=== PATIENT | female | born 1950 | race Caucasian/White ===

== ENCOUNTER → 2019-02-20 12:23 | Outpatient (CLI) | payer MEDICARE, SELFPAY ==
--- NOTE | ~2019-02-20 | XR_ITS ---
EXAMINATION: XR hip RT 2V w AP pelvis DATE: 02/20/2019 12:37 INDICATION: Right hip pain. TECHNIQUE: An anteroposterior view pelvis and 2 views of right hip were obtained. COMPARISON: None. FINDINGS: Bone alignment is normal. No fracture. There is mild lumbar spondylosis. There is mild oste oarthritis of the hips. IMPRESSION: 1. Mild osteoarthritis of the hips. Reviewed, dictated and finalized at location A. LANCE DESIGNER
== END ==
PROVIDERS: PCP Family Medicine; Visit Provider Family Medicine
DX: G89.29 Other chronic pain (principal); M16.0 Bilateral primary osteoarthritis of hip
CPT/HCPCS: 73502; 73521

== ENCOUNTER 2019-03-17 10:29 | Emergency (ER) | payer MEDICARE, SELFPAY ==
--- NOTE | ~2019-03-17 | XR_ITS ---
XR ankle RT min 3V DATE: 03/17/2019 10:49 INDICATION: Injury; fall from stool. Lateral foot and ankle pain. TECHNIQUE: 4 views COMPARISON: None FINDINGS: No fracture or dislocation of the ankle or disruption of the ankle mortise. No periosteal r eaction or bone destruction. Prominent plantar and posterior calcaneal enthesopathy. IMPRESSION: No fracture or dislocation of right ankle Reviewed, dictated and finalized at location A. ITAL SCIENTIST
--- NOTE | ~2019-03-17 | XR_ITS ---
XR foot RT min 3V DATE: 03/17/2019 10:48 INDICATION: Fall from stool. Lateral ankle and foot pain. TECHNIQUE: 4 views COMPARISON: None FINDINGS: Prominent plantar and posterior calcaneal enthesopathy. Mild hallux valgus and bunion deformity. There is osteoarthritis at the first tarsometatarsal and fir st metatarsophalangeal joint. No fracture, dislocation, periosteal reaction or bone destruction is detected. IMPRESSION: No fracture or dislocation Plantar and posterior calcaneal enthesopathy Mild hallux valgus and bunion deformity Osteoarthritis at first metatarsophalangeal and first tarsometatarsal joints Reviewed, dictated and finalized at location A. N TILER
--- NOTE | 2019-03-17 10:35 | ED.LOWEXIN ---
HPI - Extremity Injury (Lower) General Chief Complaint: Extremity Injury, Lower Stated Complaint: right foot pain/injury Time Seen by Provider: 03/17/19 10:35 Source: patient and RN notes reviewed History of Present Illness HPI Narrative: Patient is a 68-year-old female presents the urgent care with complaints of a right foot injury after missing a step while walking down a stepladder. Patient states that occurred last night. Patient states initially she had no pain and continue to ambulate without any difficulty.. Patient states that she has had no swelling or bruising but is having difficulty with weightbearing activity. Patient has taken ibuprofen. No other acute complaints. No acute distress noted. Patient had a plan of care. Related Data Home Medications Medication Instructions Recorded Confirmed atorvastatin 10 mg tablet 10 mg PO DAILY 01/02/19 02/20/19 brimonidine 0.2 %-timolol 0.5 % 1 drop EACH EYE Q12H 01/02/19 02/20/19 eye drops levothyroxine 75 mcg tablet 75 mcg PO DAILY 01/02/19 02/20/19 metformin 500 mg tablet,extended 1,000 mg PO BID tablet 01/02/19 02/20/19 release 24 hr spironolactone 150 mg PO DAILY 03/17/19 03/17/19 Allergies Allergy/AdvReac Type Severity Reaction Status Date / Time No Known Allergies Allergy Verified 03/17/19 10:35 Review of Systems Review of Systems: Narrative: CONSTITUTIONAL: Denies fever, chills, or sweats. EYES: Denies visual changes, redness, or discharge. ENT: Denies rhinorrhea, congestion, sore throat, or otalgia. CARDIOVASCULAR: Denies chest pain, palpitations, or edema. RESPIRATORY: Denies cough or dyspnea. GASTROINTESTINAL: Denies abdominal pain, nausea, vomiting, or diarrhea. GENITOURINARY: Denies dysuria or hematuria. SKIN: Denies rash or itching. MUSCULOSKELETAL: Reports of right foot pain when bearing weight due to injury/fall NEUROLOGIC: Denies headache, numbness, or weakness. All other systems reviewed are negative, except as documented in HPI. [facility] Past Medical History Medical History (Updated 03/17/19 @ 11:11 by JASSON Brown) Chronic anxiety Chronic right hip pain Hirsutism Malabsorption Family History Family History (Updated 07/10/18 @ 11:32 by DOCTOR UNKNOWN) Mother Hypertension Acute myocardial infarction, Onset Age: 71 Grandparent Family history of malignant neoplasm, Onset Age: 38 Father Family history of lung cancer, Onset Age: 60 Social History Social History Smoking status: Never smoker Alcohol intake: never Comments At the time of my signature, I reviewed and agree with the nursing past medical, surgical, social, and family history. There is no relevant family history pertinent to the patient complaint. Exam Narrative: Exam Narrative: GENERAL: This is a well-nourished, well-developed patient, in no apparent distress. HEAD: normocephalic, atraumatic. EYES: PERRL. Sclera clear/white. Vision is grossly intact. EARS: External ears normal NOSE: External nose normal with no obvious nasal discharge THROAT: Mucous membranes moist NECK: Neck supple CARDIOVASCULAR: Regular rate and rhythm without murmurs, gallops, or rubs. RESPIRATORY: Clear to auscultation. Breath sounds equal bilaterally. SKIN: warm, intact with no suspicious lesions or rash, good texture and turgor. NEURO: awake, alert, and oriented to person, place and time. There were no obvious focal neurologic abnormalities. EXTREMITIES: No obvious fracture dislocation to the right foot/ankle. No edema, ecchymosis, erythema to the right lower extremity. Positive strong right pedal pulse with capillary refill less than 2 seconds. Range of motion within normal limits with moderate pain. Moderate tenderness to the lateral aspect of the right foot and malleolus. Difficulty with weightbearing due to pain. Course Vital Signs Vital signs: Vital Signs Temperature 97.2 F L 03/17/19 10:39 Pulse Rate 90 03/17/19
[2019-03-17 10:39] VITALS: BP 103/81; PULSE 90; RESP 16; TEMP 36.2; O2SAT 100
== END 2019-03-17 11:26 | disposition home or self-care (01) ==
PROVIDERS: Emergency Provider Nurse Practitioner Family; PCP Family Medicine
DX: S93.601A Unspecified sprain of right foot, initial encounter (principal); W11.XXXA Fall on and from ladder, initial encounter
CPT/HCPCS: 73610; 73630; 99213; G0463

== ENCOUNTER 2020-09-09 18:16 | Observation (INO) | payer MEDICARE, SELFPAY ==
[2020-09-09] VITALS (12 sets, daily range): BP systolic 121–138; BP diastolic 64–81; PULSE 80–104; RESP 11–20; TEMP 36.4–36.6; O2SAT 97–100; BMI 23.4
--- NOTE | ~2020-09-09 | XR_ITS ---
EXAMINATION: XR chest 2V DATE: 09/09/2020 18:55 INDICATION: Left chest pain. TECHNIQUE: Frontal and lateral views of the chest were obtained. COMPARISON: None. FINDINGS: There is mild scarring at the lung apices. No pleural effusion or pneumothorax. The heart s ize is normal. Surgical clips in the right upper quadrant are likely from cholecystectomy. IMPRESSION: 1. Mild scarring at the lung apices. Reviewed, dictated and finalized at location A.
--- NOTE | ~2020-09-09 | US_ITS ---
EXAMINATION: US venous doppler [facility] DATE: 09/10/2020 12:07 INDICATION: Left lower limb pain TECHNIQUE: Almanzar scale images without and with compression and Doppler images of the left lower extrem ity veins were obtained. COMPARISON: None FINDINGS: The left common femoral vein, profunda femoral vein, femoral vein, popliteal vein, peroneal trunk, posterior tibial veins, and greater saphenous vein are patent. IMPRESSION: 1. Patent left lower extremity veins. No evidence of deep venous thrombosis. Reviewed, dictated and finalized at location A.
--- NOTE | ~2020-09-09 | NM_ITS ---
EXAMINATION: NM emile stress w perfusion DATE: 09/10/2020 12:49 INDICATION: Chest pain TECHNIQUE: Rest images were obtained following intravenous administration of 10.2 mCi Tc99m tetrofosm in (Myoview). The patient was infused intravenously with Lexiscan (Regadenoson). Then, 30.8 mCi Tc99m tetrofosmin (Myoview) was administered intravenously, and stress images were obtained. Data was jagruti nstructed into short axis and horizontal and vertical long axis SPECT images. Gated SPECT images were also obtained. COMPARISON: None. FINDINGS: There is no definite reversible or fixed perfusion abnormality to suggest ischemia or infar ction. There is normal left ventricular chamber size, wall motion and ejection fraction. Left ventr icular ejection fraction measures >70%. IMPRESSION: 1. Normal myocardial perfusion at rest and during stress. 2. Left ventricular ejection fraction measuring >70%. Reviewed, dictated and finalized at location A.
--- NOTE | 2020-09-09 18:24 | ECG_ITS ---
Measurements Intervals [place] Rate: 97 P: 68 MO: 158 QRS: 25 QRSD: 80 T: 63 QT: 320 QTc: 408 Interpretive Statements SINUS RHYTHM BASELINE ARTIFACT- II, III, AVL, V4-V6 NORMAL ECG Electronically Signed On 09-10-2020 11:51:55 CDT by Gabe Michaud D.O.
[2020-09-09 18:40] LABS: Basophils Absolute Auto 0.1 K/mm3 (0.0-0.1); Basophils Percent Auto 0.5 % (0.2-1.2); Eosinophils Absolute Auto 0.2 K/mm3 (0-0.3); Eosinophils Percent Auto 1.8 % (0-4.4); Hemoglobin 12.2 g/dL (12.0-15.0); Immature Granulocyte Absolute 0.04 K/mm3 (0.00-0.031); Immature Granulocyte Percent A 0.4 % (0-0.5); Lymphocytes Absolute Auto 2.27 K/mm3 (0.9-3.2); Lymphocytes Percent Auto 22.5 % (18.3-44.2); Mean Corpuscular HGB Conc 30.5 g/dl (32-36); Mean Corpuscular Hemoglobin 24.8 pg (26-34); Mean Corpuscular Volume 81.5 fl (80-100); Mean Platelet Volume 9.5 fl (7.4-10.4); Monocytes Absolute Auto 0.6 K/mm3 (0.1-0.6); Monocytes Percent Auto 6.2 % (2.6-8.5); Neutrophils Absolute Auto 6.9 K/mm3 (1.3-6.7); Neutrophils Percent Auto 68.6 % (45.5-73.1); Platelet Count Result 370 k/mm3 (150-375); Red Blood Count 4.91 M/mm3 (4.2-5.4); Red Cell Distribution Width 13.9 % (11.5-14.5); White Blood Count 10.1 K/mm3 (4.5-10.0)
[2020-09-09 18:52] LABS: Anion Gap 11 mmol/L (8-16); Blood Urea Nitrogen 19 mg/dL (7-17); Calcium 9.9 mg/dL (8.4-10.2); Carbon Dioxide 24 mmol/L (22-30); Chloride 98 mmol/L (98-107); Estimated CRCL calculation 51 ml/min; Estimated Glomerular Filt Rate > 60; Glucose 147 mg/dL (65-110); Potassium 4.1 mmol/L (3.4-5.0); Sodium 133 mmol/L (137-145)
[2020-09-09 19:04] LABS: Troponin I < 0.012 ng/mL (0.000-0.034)
[2020-09-09 19:10] LABS: INR 0.8; Prothrombin Time 11.5 Seconds (11.1-14.7)
[2020-09-09 19:11] LABS: Partial Thromboplastin Time 21.8 SECONDS (22.3-36.8)
--- NOTE | 2020-09-09 21:51 | ED.CHESTPAIN ---
HPI - Chest Pain General Chief Complaint: Chest Pain Stated Complaint: chest pain Time Seen by Provider: 09/09/20 20:20 Source: patient Mode of arrival: ambulatory Limitations: no limitations History of Present Illness HPI narrative: 70-year-old with a history of hyperlipidemia hypertension borderline diabetic on Metformin here with complaints of left-sided chest pain radiating into her left arm for past few days. Patient states that pain lasted for few hours on the very first day however since this morning she has been getting on and off pain. Patient states that while she was climbing her basement stairs she had severe pain in the left side of her chest radiated to her left arm. She denied any shortness of breath, nausea or diaphoresis with the pain. Patient states that whenever she gets this pain radiating to her left arm and it is like electrical shock going down to her arm. She states that she took 3 aspirins prior to coming to the ER. MD complaint: chest pain Onset (ago): day(s) (3) Timing of current episode: episodic Onset: during exertion Pain location: left chest Pain radiation: left arm Severity: moderate Quality: aching, heaviness and sharp Relieving factors: nothing Exacerbating factors: exertion Context: recent illness Associated symptoms: nausea Treatment prior to arrival: none Risk Factors Coronary artery disease risk factors: diabetes, hyperlipidemia and hypertension Thoracic aortic dissection risk factors: none Related Data Home Medications Medication Instructions Recorded Confirmed brimonidine 0.2 %-timolol 0.5 % 1 drop EACH EYE Q12H 01/02/19 08/31/20 eye drops cyanocobalamin (vitamin B-12) 1,000 mcg PO DAILY tablet 04/13/20 08/31/20 2,500 mcg tablet cholecalciferol (vitamin D3) 50 2,000 unit PO DAILY cap 08/31/20 08/31/20 mcg (2,000 unit) capsule Allergies Allergy/AdvReac Type Severity Reaction Status Date / Time No Known Allergies Allergy Verified 09/09/20 20:52 Review of Systems Review of Systems: All systems reviewed & are unremarkable except as noted in HPI and below Constitutional: Constitutional: Reports no additional constitutional complaints Eyes: Eyes: Reports no additional eye complaints ENT: Reports system reviewed and no additional complaints, except as documented Cardiovascular: Cardiovascular: Reports as per HPI Respiratory: Respiratory: Reports no additional respiratory complaints Gastrointestinal: Gastrointestinal: Reports no additional gastrointestinal complaints Musculoskeletal: Musculoskeletal: Reports no additional musculoskeletal complaints Integumentary/Breasts: Skin/Breast: Reports system reviewed and no additional complaints, except as docu Neurologic: Reports system reviewed and no additional complaints, except as documented PMFSH Past Medical History Medical History Atypical chest pain BMI 23.0-23.9, adult Chronic anxiety Chronic right hip pain Hirsutism History of basal cell carcinoma the patient has been treated by ceiling cleaner for basal cell carcinoma left upper arm, chest, and on the back Malabsorption Nausea and vomiting Plantar fasciitis of right foot 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 HEAD: Normocephalic, atraumatic. EYES: PERRLA and EOMI.. NECK: Supple. CHEST: Clear to auscultation. No respiratory distres
[2020-09-09 22:14] LABS: Troponin I < 0.012 ng/mL (0.000-0.034)
--- NOTE | 2020-09-09 23:31 | ADMGEN ---
This patient, Lacey Nails, was admitted to IMU Room 201-01. Patient/family oriented to hospital policies and general routines including ID bracelet, bed and alarms, visiting hours, pain management, procedures, bathroom and other care routines, personal items, smoking policy, room service/diet, and visiting hours. Information on how to activate the Rapid Response Team has been discussed. Patient/Family are encouraged to report perceived risks to care and to ask questions if they do not understand what they are told or what they should do.
[2020-09-10] VITALS (10 sets, daily range): BP systolic 106–114; BP diastolic 48–62; PULSE 70–86; RESP 12–18; TEMP 36.2–36.7; O2SAT 97–100
--- NOTE | 2020-09-10 | EST_ITS ---
Patient Info Name: Lacey Nails Age: 70 years : 1950 Gender: Female Ht: 65 in Wt: 140 lbs BSA: 1.71 m2 Exam Date: 09/10/2020 10:51 AM Exam Location: [facility] Stress Patient Status: Inpatient Admit Date: 09/09/2020 Staff Ordering Physician: Modesto Antonio MD Attending Provider: Carlene Sanders PA-C Exercise Technologist: Melissa Peck RDCS Exercise Physician: Gabe Michaud DO Exam Type: CA stress emile w NM Study Info Indications R07.9 - Chest pain, unspecified A regadenoson stress test was performed. Summary 1. 1. Negative lexiscan stress test for ischemic ST changes by ECG criteria. 2. 2. Stable hemodynamics throughout the test. 3. 3. Nuclear scan to follow and will be reported separately. Please correlate with it. 4. 4. Patient informed of the above results. Protocol: Lexiscan Stress ECG Details Stage: REST Duration (min): 5 min : 40 sec HR (bpm): 75 SBP (mmHg): 131 DBP (mmHg): 57 Stage: REST Duration (min): 20 min : 24 sec HR (bpm): 86 SBP (mmHg): 131 DBP (mmHg): 57 Stage: STAGE 1 Duration (min): 0 min : 59 sec HR (bpm): 110 SBP (mmHg): 155 DBP (mmHg): 92 Stage: RECOVERY Duration (min): 1 min : 0 sec HR (bpm): 115 SBP (mmHg): 139 DBP (mmHg): 82 Stage: RECOVERY Duration (min): 2 min : 0 sec HR (bpm): 109 SBP (mmHg): 139 DBP (mmHg): 82 Stage: RECOVERY Duration (min): 3 min : 0 sec HR (bpm): 104 SBP (mmHg): 139 DBP (mmHg): 82 Stage: RECOVERY Duration (min): 4 min : 0 sec HR (bpm): 109 SBP (mmHg): 135 DBP (mmHg): 64 Stage: RECOVERY Duration (min): 5 min : 0 sec HR (bpm): 104 SBP (mmHg): 133 DBP (mmHg): 65 Stage: RECOVERY Duration (min): 5 min : 15 sec HR (bpm): 105 SBP (mmHg): 133 DBP (mmHg): 65 Rest HR: 86 bpm Peak HR: 118 bpm Rest Sys BP: 131 mmHg Peak Sys BP: 155 mmHg Max Pred HR: 149 bpm % Max Pred HR: 79 % Target HR: 127 bpm Max RPP: 18,290 bpm*mmHg Termination Reason: Completed protocol Cardiac Symptoms: Stomach indigestion Total Time: 1 min : 0 sec Rest Castañeda BP: 57 mmHg Peak Castañeda BP: 92 mmHg Total Dose: 0.4 mg Resting ECG Sinus rhythm. Stress ECG No ST changes. Arrhythmias None. Report Signatures
[2020-09-10] MEDS: NITROGLYCERIN OINTMENT 1 INCH DOSE TRANSDERM (00:05)
[2020-09-10] MEDS: ACETAMINOPHEN 325 MG TABLET 650 MG PO (00:06)
[2020-09-10 01:29] LABS: Troponin I < 0.012 ng/mL (0.000-0.034)
--- NOTE | 2020-09-10 02:20 | PM.IMHP ---
H&P: HPI History of Present Illness Date/Time: 09/10/20 02:20 Chief Complaint: CHEST PAIN Narrative: this is a 70-year-old female with past medical history significant for dyslipidemia, hypothyroidism: Type 2 diabetes mellitus: Hypertension. patient presented to the emergency room due to chest pain in the precordial area with radiation to the left shoulder left arm tingling unknown in sensation at the fingers patient had a 1st episode while at [facility]odoxy on Monday and she took a baby aspirin on the day she presented to the emergency room she woke up in the morning with the pain and was doing her daily activities through the day and took 3 baby aspirins but pain did not go away and stay for most of the day she has some shortness of breath when going up stairs and had some lightheadedness no diaphoresis no nausea no vomiting no changes in vision no chills no fevers no rigors no PND or orthopnea no leg swelling no claudication on she has been in her usual state of health up until these happen. preliminary workup was essentially nonrevealing. Review of Systems Review of Systems: chest pain Constitutional: Constitutional: Denies chills, Denies fatigue and Denies fever(s) Eyes: Eyes: Denies change in vision ENT: Denies dysphagia, Denies nasal congestion, Denies nasal discharge, Denies nasal obstruction and Denies odynophagia Cardiovascular: Cardiovascular: Reports chest pain, Denies irregular heart rhythm, Reports lightheadedness, Reports radiating jaw, neck or arm pain and Denies palpitations Respiratory: Respiratory: Denies cough Gastrointestinal: Gastrointestinal: Denies abdominal pain, Denies diarrhea, Denies nausea and Denies vomiting Genitourinary: Genitourinary: Reports no additional female genitourinary complaints Musculoskeletal: Musculoskeletal: Reports no additional musculoskeletal complaints Integumentary/Breasts: Skin/Breast: Reports system reviewed and no additional complaints, except as docu Neurologic: Reports system reviewed and no additional complaints, except as documented Psychiatric: Psychiatric: Reports no additional psychiatric complaints Endocrine: Endocrine: Reports no additional endocrine complaints Hematologic/Lymphatic: Hematologic/Lymphatic: Reports no additional hematologic/lymphatic complaints Allergic/Immunologic: Allergic/Immunologic: Reports no additional allergic/immunologic complaints PMFSH Past Medical History Medical History Atypical chest pain BMI 23.0-23.9, adult Chronic anxiety Chronic right hip pain Hirsutism History of basal cell carcinoma the patient has been treated by integrated circuit ic layout designer for basal cell carcinoma left upper arm, chest, and on the back Malabsorption Nausea and vomiting Plantar fasciitis of right foot 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 Vitamin D deficiency, unspecified Family History Family History (Updated 09/09/20 @ 23:51 by Carmelita Bermeo RN) Mother Acute myocardial infarction, Onset Age: 71 Hypertension Grandparent Family history of malignant neoplasm, Onset Age: 38 Father Family history of lung cancer, Onset Age: 60 Son Endocrine cancer Social History Social History Smoking status: Never smoker Second hand tobacco smoke exposure: Yes (father smoked) Alcohol intake: former Spiritual care concerns: Yes (Hinduism) Meds Home Medications and Allergies Home Medications Medication Instructions Recorded Confirmed Type brimonidine 0.2 %-timolol 0.5 % 1 drop RIGHT EYE Q12H 01/02/19 09/09/20 History eye drops spironolactone 50 mg tablet 150 mg PO DAILY #90 tablet 07/08/19 09/09/20 Rx cyanocobalamin (vitamin B-12) 1,000 mcg PO DAILY tablet 04/13/20 09/09/20 History 2,500 mcg tablet atorvastatin 10 mg tablet 10 mg PO DAILY #90 tablet 06/29/20 09/09/20 Rx metformin 500 mg tablet,
[2020-09-10] MEDS: LEVOTHYROXINE SODIUM 75 MCG TABLET PO (05:27)
[2020-09-10 08:54] LABS: Glucose Point of Care 163 mg/dl (65-105)
[2020-09-10 12:17] LABS: Cholesterol 184 mg/dL (0-200); HDL Direct 37 mg/dL; Triglycerides 265 mg/dL (<150)
[2020-09-10 12:27] LABS: LDL Cholesterol Direct 98 mg/dL
[2020-09-10] MEDS: BRIMONIDINE TARTRATE 0.2% OP SOLN 5 ML BTL 1 DROP RIGHT EYE (13:06)
[2020-09-10] MEDS: TIMOLOL MALEATE 0.5% OP SOLN 5 ML BOTTLE 1 DROP RIGHT EYE (13:06)
[2020-09-10 13:09] LABS: Glucose Point of Care 229 mg/dl (65-105)
[2020-09-10 14:02] LABS: D Dimer < 0.22 ug/mL (<0.48)
[2020-09-10 16:10] LABS: Glucose Point of Care 280 mg/dl (65-105)
--- NOTE | 2020-09-10 16:21 | PM.DS ---
DS: Admitting Diagnosis Admitting Diagnosis chest and arm pain DS: Discharge Diagnosis Discharge Diagnosis (1) Chest pain: Qualifiers: Chest pain type: chest pain due to myocardial ischemia Ischemic chest pain type: unstable angina pectoris Qualified Code(s): I20.0 - Unstable angina Code(s): R07.9 - Chest pain, unspecified Status: Acute (2) Fibromyalgia: Code(s): M79.7 - Fibromyalgia Status: Acute (3) Hypothyroidism, unspecified: Code(s): E03.9 - Hypothyroidism, unspecified Status: Acute (4) Irritable bowel syndrome with diarrhea: Code(s): K58.0 - Irritable bowel syndrome with diarrhea Status: Acute (5) Type 2 diabetes mellitus without complication, without long-term current use of insulin: Code(s): E11.9 - Type 2 diabetes mellitus without complications Status: Acute DS: Summary Hospital Course Hospital Course: Date of service 09/10/20 Patient is a 70-year-old female with a past medical history of type 2 diabetes, hypertension, dyslipidemia, hypothyroidism, and fibromyalgia who presented emergency room for left chest and arm pain. The patient states that she noticed it started on Monday and could not associate the pain with any activity or find any correlation for the timing. She said that she would randomly get is squeezing left-sided chest pain and then her arm would feel tingly. This would last for a few minutes and resolved on its own. Nothing made it better and nothing made it worse. She had no shortness of breath or diaphoresis with these symptoms. No history of heart disease. She is usually pretty active and likes to ride her bike and walks daily. She has stopped exercising last few weeks due to the heat but when she was exercising, she had no symptoms. She has diabetes that has been a little more uncontrolled lately and she is trying to work on her diet. She is not interested in trying new medications but after our discussion is going to think about it. In the ER her troponins were negative x3 and vitals were stable. D-dimer was negative. chest x-ray showed mild scarring at the lung apices but no cardiopulmonary disease. EKG showed no ST change. she had an outpatient stress test ordered for outpatient but since she was having chest pain she was admitted under observation status and underwent a stress test here at the hospital. She passes stress test without any issue whatsoever. She had no signs of CHF. I had a long discussion with patient about etiology of her pain which may include cervical spine radiculopathy, PE, fibromyalgia, cardiac disease not demonstrated on stress test ( small% false negativity), cardiac arrhythmia (less likely), aortic abnormality (bp okay, no anemia),or anxiety. Cardiac disease seems less likely as her stress test is normal and the symptoms are random and not associated with exertion. She is very active and usually walks and rides her bike. I also talked to her about possibility of PE being much less likely since she has a negative D-dimer and no blood clot in her left leg which has been hurting her. she has severe claustrophobia and could not do an MRI here but may consider doing an open MRI outpatient of her cervical spine. I do not think she has had a stroke or TIA since she has no neurological deficits, no evidence of AFib, and does not present like a stroke. She is agreeable to discharge and follow-up with her primary care physician next week. I called Dr. Montemayor and spoke with him about the case and he agreed with following up with her. may consider outpatient cervical spine MRI and echo. We discussed that she may follow-up with a business functional analyst anyway if the pain persists to ensure no pathology since she does have diabetes. She was educated about the worrisome signs and symptoms come back to emergency room for and was discharged stable condition. Time Spent with Patient Time attestation: Total time spent providing an
== END 2020-09-10 17:48 | disposition home or self-care (01) ==
LOC: ANHED 22:37 → ANHTRC 23:11 → ANHIMU 23:19
PROVIDERS: Physician Assistant; Admitting Provider Internal Medicine; Emergency Provider Family Medicine; PCP Family Medicine; Visit Provider Student in an Organized Health Care Education/Training Program
DX: R07.9 Chest pain, unspecified (principal); I20.0 Unstable angina; E03.9 Hypothyroidism, unspecified; E11.9 Type 2 diabetes mellitus without complications; E78.5 Hyperlipidemia, unspecified; I10 Essential (primary) hypertension; K58.0 Irritable bowel syndrome with diarrhea; M79.7 Fibromyalgia; Z85.828 Personal history of other malignant neoplasm of skin; Z79.84 Long term (current) use of oral hypoglycemic drugs
CPT/HCPCS: 36415; 71046; 78452; 80048; 80061; 82948; 84443; 84484; 85025; 85380; 85610; 85730; 93005; 93017; 93971; 99285; A9270; A9502; G0378; J2785

== ENCOUNTER → 2020-09-16 14:37 | Outpatient (CLI) | payer MEDICARE, SELFPAY ==
--- NOTE | ~2020-09-16 | XR_ITS ---
XR_CERV2-3V_CR DATE: 09/16/2020 15:05 INDICATION: Neck pain TECHNIQUE: AP, open-mouth, lateral, swimmer views COMPARISON: None FINDINGS: C1 and C2 are normally aligned and the odontoid process is intact. No fracture or dislocation or locked facet or prevertebral soft tissue swelling. There is moderate loss of interspace height and spurring at C4-5 and severe degenerative disc disease at C5-6. There is moderately severe degenerative disc disease at C6-7. There is uncovertebral joint spurring in the mid and lower cervical spine and degenerative changes at the apophyseal joints of the cervical spine. IMPRESSION: Cervical spondylosis Reviewed, dictated and finalized at Location A. Reviewed, dictated and finalized at location A. IMPRESSION: Cervical spondylosis
--- NOTE | ~2020-09-16 | XR_ITS ---
XR shoulder LT min 2V DATE: 09/16/2020 15:05 INDICATION: Left shoulder pain TECHNIQUE: 4 views COMPARISON: None FINDINGS: There is idiopathic skeletal hyperostosis of the thoracic spine. Diffuse osteopenia. No fracture or dislocation, periosteal reaction or bone destruction or abnormal soft tissue calcifica tion of the left shoulder. IMPRESSION: Osteopenia Diffuse idiopathic skeletal hyperostosis of the thoracic spine Reviewed, dictated and finalized at location A.
== END ==
PROVIDERS: PCP Family Medicine; Visit Provider Nurse Practitioner Family
DX: M48.14 Ankylosing hyperostosis [Forestier], thoracic region (principal); M47.892 Other spondylosis, cervical region
CPT/HCPCS: 72040; 73030

== ENCOUNTER 2020-12-23 00:02 | Day surgery (SDC) | payer MEDICARE, SELFPAY ==
[2020-12-10 12:57] VITALS: BMI 23.8
--- NOTE | 2020-12-22 16:13 | P.HP_ITS ---
History of Present Illness History of Present Illness Consent: Risks, benefits, and alternatives have been discussed and questions answered. Patient agrees to proceed with procedure. Chief complaint: hx of colon polyps Z86.010 Narrative: Lacey Nails is a 70 year old female referred for colon cancer screening. 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 Screening for diabetic retinopathy no diabetic retinopathy noted 11/18/2020 Vitamin D deficiency, unspecified Surgical History Surgical History H/O colonoscopy Family History Family History Mother Acute myocardial infarction, Onset Age: 71 Hypertension Grandparent Family history of malignant neoplasm, Onset Age: 38 Father Family history of lung cancer, Onset Age: 60 Son Endocrine cancer Social History Social History Smoking status: Never smoker Second hand tobacco smoke exposure: Yes (father smoked) Alcohol intake: never Substance use: never Substance use type: does not use Living arrangements: with family Spiritual care concerns: No Meds Home Medications and Allergies Home Medications Medication Instructions Recorded Confirmed Type brimonidine 0.2 %-timolol 0.5 % 1 drop RIGHT EYE Q12H 01/02/19 12/10/20 History eye drops spironolactone 50 mg tablet 150 mg PO DAILY #90 tablet 07/08/19 12/10/20 Rx atorvastatin 10 mg tablet 10 mg PO DAILY #90 tablet 06/29/20 12/10/20 Rx metformin 500 mg tablet,extended 1,000 mg PO BID #120 tablet 08/18/20 12/10/20 Rx release 24 hr cholecalciferol (vitamin D3) 50 2,000 unit PO DAILY cap 08/31/20 12/10/20 History mcg (2,000 unit) capsule levothyroxine 75 mcg tablet 75 mcg PO DAILY #30 tablet 09/01/20 12/10/20 Rx Allergies Allergy/AdvReac Type Severity Reaction Status Date / Time No Known Allergies Allergy Verified 12/23/20 06:21 Exam Resp: Auscultation: clear to auscultation bilaterally Cardio: Rate: regular rate Rhythm: regular rhythm GI: GI Palp: Yes Soft to palpation and No Tenderness to palpation present (GI) Assessment and Plan Assessment and plan (1) Colon cancer screening: Code(s): Z12.11 - Encounter for screening for malignant neoplasm of colon Status: Acute Assessment and Plan: Colonoscopy with possible biopsy or polypectomy or cautery or injection of substances.
[2020-12-23 06:23] VITALS: BP 134/62; PULSE 88; RESP 18; TEMP 36.1; O2SAT 100
[2020-12-23] MEDS: LACTATED RINGERS 1,000 ML 150 ML IV CONT ×2 (06:30→06:37)
[2020-12-23 06:40] LABS: Glucose Point of Care 177 mg/dl (65-105)
--- NOTE | 2020-12-23 06:49 | WPDANESEPPF ---
Anes - Initial Pre Proc Eval Procedure: Operation Date: 12/23/20 07:30 Proposed Procedures p Screening Colonoscopy - Chris Higgins MD Date/Time: 12/23/20 06:49 Surgeon: Chris Higgins MD Pre Op Diagnosis: hx of colon polyps Z86.010 Patient Data Age: 70 Gender: F Height: 1.65 m Weight: 62 kg Last Vital Signs Temp 36.1 C L 12/23/20 06:23 Pulse 88 12/23/20 06:23 Resp 18 12/23/20 06:23 BP 134/62 12/23/20 06:23 Pulse Ox 100 12/23/20 06:23 Allergies Allergy/AdvReac Type Severity Reaction Status Date / Time No Known Allergies Allergy Verified 12/23/20 06:21 Home Medications Medication Instructions Recorded Confirmed Type brimonidine 0.2 %-timolol 0.5 % 1 drop RIGHT EYE Q12H 01/02/19 12/10/20 History eye drops spironolactone 50 mg tablet 150 mg PO DAILY #90 tablet 07/08/19 12/10/20 Rx atorvastatin 10 mg tablet 10 mg PO DAILY #90 tablet 06/29/20 12/10/20 Rx metformin 500 mg tablet,extended 1,000 mg PO BID #120 tablet 08/18/20 12/10/20 Rx release 24 hr cholecalciferol (vitamin D3) 50 2,000 unit PO DAILY cap 08/31/20 12/10/20 History mcg (2,000 unit) capsule levothyroxine 75 mcg tablet 75 mcg PO DAILY #30 tablet 09/01/20 12/10/20 Rx Laboratory Tests 12/23/20 06:33 POC Capillary Glucose 177 mg/dl H mg/dl (65-105) Patient hx anesthesia problems: none Family hx anesthesia problems: none Results Review: All pre-operative results and documents have been reviewed as part of the pre-operative evaluation. 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 Screening for diabetic retinopathy no diabetic retinopathy noted 11/18/2020 Vitamin D deficiency, unspecified Surgical History Surgical History (Updated 12/23/20 @ 06:50 by Ezequiel Farr MD) H/O colonoscopy Family History Family History Mother Acute myocardial infarction, Onset Age: 71 Hypertension Grandparent Family history of malignant neoplasm, Onset Age: 38 Father Family history of lung cancer, Onset Age: 60 Son Endocrine cancer Social History Social History Smoking status: Never smoker Second hand tobacco smoke exposure: Yes (father smoked) Alcohol intake: never Substance use: never Substance use type: does not use Living arrangements: with family Spiritual care concerns: No Anes - Eval Final PreProcedure Day of Procedure 12/23/20 06:49 Patient weight: normal Heart: regular rate and rhythm Lungs: clear to auscultation Airway: Mallampati scale class II Neurological: alert and oriented Last oral intake: >/= 8 hours ASA classification: III Emergent: no Anesthetic plan: proceed Anesthesia type and monitoring: general GIVS and standard monitoring Results Review: All pre-operative results and documents have been reviewed as part of the pre-operative evaluation. Informed Consent: The patient's anesthetic plan and its attendant risks and benefits were discussed with the patient/family/POA. Questions were solicited and answers provided to the satisfaction of the patient/family/POA.
[2020-12-23 07:52] VITALS: BP 102/60; PULSE 73; RESP 17; O2SAT 98
[2020-12-23 08:02] VITALS: BP 110/71; PULSE 77; RESP 21; O2SAT 100
[2020-12-23 08:12] VITALS: BP 126/60; PULSE 71; RESP 20; O2SAT 100
== END 2020-12-23 08:21 | disposition home or self-care (01) ==
PROVIDERS: PCP Family Medicine; Visit Provider Internal Medicine Gastroenterology
PROC: 0DJD8ZZ Inspection of Lower Intestinal Tract, Via Natural or Artificial Opening Endoscopic (ICD-10-PCS; CPT 45378; principal; 2020-12-23 07:30)
DX: Z12.11 Encounter for screening for malignant neoplasm of colon (principal); K63.5 Polyp of colon; D12.3 Benign neoplasm of transverse colon; E03.9 Hypothyroidism, unspecified; Z79.84 Long term (current) use of oral hypoglycemic drugs; F41.9 Anxiety disorder, unspecified; L68.0 Hirsutism; M72.2 Plantar fascial fibromatosis; E11.9 Type 2 diabetes mellitus without complications; Z85.828 Personal history of other malignant neoplasm of skin
CPT/HCPCS: 45385; 45380; 82948; 88305; J2704; J7120

== ENCOUNTER 2021-08-17 11:09 | Outpatient (CLI) | payer MEDICARE, SELFPAY ==
[2021-08-17 11:29] LABS: Basophils Absolute Auto 0.1 K/mm3 (0.0-0.1); Basophils Percent Auto 0.7 % (0.2-1.2); Eosinophils Absolute Auto 0.2 K/mm3 (0-0.3); Eosinophils Percent Auto 2.4 % (0-4.4); Hematocrit 34.7 % (37.0-47.0); Hemoglobin 9.7 g/dL (12.0-15.0); Immature Granulocyte Absolute 0.02 K/mm3 (0.00-0.031); Immature Granulocyte Percent A 0.3 % (0-0.5); Lymphocytes Absolute Auto 1.72 K/mm3 (0.9-3.2); Lymphocytes Percent Auto 23.8 % (18.3-44.2); Mean Corpuscular Hemoglobin 21.7 pg (26-34); Mean Corpuscular Volume 77.5 fl (80-100); Mean Platelet Volume 8.7 fl (7.4-10.4); Monocytes Absolute Auto 0.5 K/mm3 (0.1-0.6); Monocytes Percent Auto 6.5 % (2.6-8.5); Neutrophils Absolute Auto 4.8 K/mm3 (1.3-6.7); Neutrophils Percent Auto 66.3 % (45.5-73.1); Platelet Count Result 375 k/mm3 (150-375); Red Blood Count 4.48 M/mm3 (4.2-5.4); Red Cell Distribution Width 15.6 % (11.5-14.5); White Blood Count 7.2 K/mm3 (4.5-10.0)
[2021-08-17 11:47] LABS: Anisocytosis 1+ (NORMAL); Hypochromasia 1+ (NORMAL); Platelet Estimate Adequate (Adequate)
[2021-08-17 16:06] LABS: Iron 30 ug/dL (37-170)
[2021-08-17 16:14] LABS: Alanine Aminotransferase 12 U/L (6-35); Albumin Level 4.3 g/dL (3.5-5.1); Alkaline Phosphatase 68 U/L (38-126); Anion Gap 8 mmol/L (8-16); Aspartate Amino Transferase 18 U/L (14-36); Bilirubin,Total 0.4 mg/dL (0.2-1.3); Blood Urea Nitrogen 18 mg/dL (7-17); Calcium 9.4 mg/dL (8.4-10.2); Carbon Dioxide 26 mmol/L (22-30); Chloride 105 mmol/L (98-107); Estimated Glomerular Filt Rate > 60; Glucose 88 mg/dL (65-110); Lactate Dehydrogenase 295 U/L (313-618); Potassium 4.1 mmol/L (3.4-5.0); Sodium 139 mmol/L (137-145)
[2021-08-17 16:15] LABS: Percent Iron Saturation 6 % (20-50)
[2021-08-17 16:42] LABS: Ferritin 4.45 ng/mL (11.1-264)
[2021-08-17 18:30] LABS: Folic Acid 12.2 ng/mL (2.76->20)
[2021-08-21 09:39] LABS: Methylmalonic Acid 181 nmol/L (87-318)
== END 2021-08-17 11:10 | disposition home or self-care (01) ==
LOC: ANHLAB 11:11
PROVIDERS: PCP Family Medicine; Visit Provider Internal Medicine Hematology & Oncology
DX: D64.9 Anemia, unspecified (principal)
CPT/HCPCS: 36415; 80053; 82607; 82728; 82746; 83540; 83550; 83615; 83921; 84443; 85025

== ENCOUNTER 2021-08-25 10:46 | Outpatient (CLI) | payer MEDICARE, SELFPAY ==
[2021-09-01 10:30] LABS: Gliadin AB, IgG <1.0 U/mL (<15.0); TTG IGA AB <1.0 U/mL (<15.0)
== END 2021-08-25 10:47 | disposition home or self-care (01) ==
PROVIDERS: PCP Internal Medicine Gastroenterology; Visit Provider Internal Medicine Gastroenterology
DX: D64.9 Anemia, unspecified (principal)
CPT/HCPCS: 36415; 83516; 86255

== ENCOUNTER → 2022-01-11 09:26 | Outpatient (CLI) | payer MEDICARE, SELFPAY ==
--- NOTE | ~2022-01-11 | DEXA_ITS ---
Bone Density Report Name: SOPHIA MONTERO Age: 71 Sex: Female Ethnicity: White Date of : 1950 Indication: osteopenia; parental hip fracture;postmenopausal Referring Provider: CORNELIUS SWEENEY Study: Bone densitometry was performed. Exam Date: January 11, 2022 Accession number: [id number] Bone Density: Region BMD T-score Z-score Classification AP Spine (L1-L4) 0.917 -1.2 1.1 Osteopenia Femoral Neck (Left) 0.635 -1.9 0.0 Osteopenia Total Hip (Left) 0.719 -1.8 -0.2 Osteopenia Femoral Neck (Right) 0.549 -2.7 -0.8 Osteoporosis Total Hip (Right) 0.677 -2.2 -0.5 Osteopenia Total Hip Mean 0.698 -2.0 -0.4 Osteopenia World Health Organization criteria for BMD impression classify patients as: Normal (T-score at or above -1.0), Osteopenia (T-score between -1.0 and -2.5), or Osteoporosis (T-score at or below -2.5). 10-year Fracture Risk: FRAX not reported because: Some T-score for Spine Total or Hip Total or Femoral Neck at or below -2.5 Previous Exams: Region Exam Age BMD T-score BMD Change BMD Change Date g/cm2 vs Baseline vs Previous AP Spine(L1-L4) 01/11/2022 71 0.917 -1.2 -0.007 0.000 06/26/2017 67 0.918 -1.2 -0.007 -0.037* 12/28/2012 62 0.955 -0.8 0.031* 0.031* 03/31/2010 59 0.924 -1.1 Total Hip(Left) 01/11/2022 71 0.719 -1.8 -0.021 -0.008 06/26/2017 67 0.727 -1.8 -0.013 0.001 12/28/2012 62 0.727 -1.8 -0.013 -0.013 03/31/2010 59 0.740 -1.7 Total Hip(Right) 01/11/2022 71 0.677 -2.2 -0.065* -0.034* 06/26/2017 67 0.711 -1.9 -0.031* -0.044* 12/28/2012 62 0.755 -1.5 0.013 0.013 03/31/2010 59 0.742 -1.6 *Denotes significance at 95% confidence level, LSC for AP Spine = 0.022 g/cm2, LSC for Total Hip = 0.027 g/cm2 Clinical Information Provided by Patient: Parent has had a hip fracture Has used the following medications: Vitamin D Patient maximum height was 64 Menopause Age: 51 No regular weight bearing exercise Drinks caffeinated beverages Onset of menses at age 14 Number of children 1 Impression: The patient has osteoporosis, based on the Right Femoral Neck T-score. The patient has risk factors, including: parental hip fracture. The BMD for the Total Hip(Right) decreased, changing by -0.034 since the last DXA exam. Discussion: ULISSES
== END ==
PROVIDERS: PCP Family Medicine; Visit Provider Family Medicine
DX: M81.0 Age-related osteoporosis without current pathological fracture (principal); M85.89 Other specified disorders of bone density and structure, multiple sites
CPT/HCPCS: 77080

== ENCOUNTER 2022-07-19 11:48 | Outpatient (CLI) | payer MEDICARE, SELFPAY ==
[2022-07-24 22:38] LABS: ANCA Screen Negative (Negative); Myeloperoxidase Ab <1.0 AI (<1.0); Proteinase-3 Ab <1.0 AI (<1.0)
== END 2022-07-19 11:49 | disposition home or self-care (01) ==
LOC: ANHLAB 11:49
PROVIDERS: PCP Family Medicine; Visit Provider Internal Medicine Gastroenterology
DX: K52.9 Noninfective gastroenteritis and colitis, unspecified (principal)
CPT/HCPCS: 36415; 86036; 86671

== ENCOUNTER 2022-07-20 12:01 | Outpatient (CLI) | payer MEDICARE, SELFPAY ==
[2022-08-03 07:41] LABS: Calprotectin, Stool 489
== END 2022-07-20 17:37 | disposition home or self-care (01) ==
PROVIDERS: PCP Family Medicine; Visit Provider Internal Medicine Gastroenterology
DX: K52.9 Noninfective gastroenteritis and colitis, unspecified (principal)
CPT/HCPCS: 83993

== ENCOUNTER → 2022-07-25 12:34 | Outpatient (CLI) | payer MEDICARE, SELFPAY ==
--- NOTE | ~2022-07-25 | CT_ITS ---
CT of the Abdomen and Pelvis: Indication: Left lower quadrant mass Technique: 2.5 mm axial scans were obtained through the abdomen and pelvis following intravenous adm inistration of 100 cc of Omnipaque 350. Dose reduction technique was used on this scan by utilizing a utomated exposure control and iterative reconstruction technique. The dose-length product (DLP) was 3 51.05 mGy-cm. Findings: Scans through the lung bases are unremarkable. The liver, spleen, pancreas, adrenals and kidneys are within normal limits. Cholecystectomy clips are present. No evidence of aortic aneurysm. No lymphadenopathy. No bowel obstruction or bowel wall thickening. There is no evidence to suggest acute appendicitis. Images through the pelvis were performed. Urinary bladder unremarkable. No adnexal mass seen. No asci dianna. Impression: No significant abnormalities seen. Reviewed, dictated and finalized at [facility]. Impression: No significant abnormalities seen.
[2022-07-25 13:01] LABS: Estimated Glomerular Filt Rate > 60
== END ==
PROVIDERS: PCP Family Medicine; Visit Provider Internal Medicine Gastroenterology
DX: R19.04 Left lower quadrant abdominal swelling, mass and lump (principal)
CPT/HCPCS: 74177; Q9967

== ENCOUNTER 2022-08-24 08:36 | Outpatient (CLI) | payer MEDICARE, SELFPAY ==
--- NOTE | ~2022-08-24 | XR_ITS ---
EXAMINATION: XR UGIAC w small bowel DATE: 08/24/2022 10:39 INDICATION: Nausea. Diarrhea. Weight loss. TECHNIQUE: The patient drank thick barium, gas-producing crystals, and thin barium. Fluoroscopy of th e esophagus, stomach, and small bowel was performed. Fluoroscopy exposure time was 0.9 minutes. Radio graphs of the abdomen were obtained. The total number of images was 296. COMPARISON: CT abdomen and pelvis 07/25/2022 FINDINGS: UPPER GASTROINTESTINAL SERIES: There is no mass or stricture of the esophagus. Esophageal motility is normal. There is a small slidi ng hiatal hernia. There was spontaneous gastroesophageal reflux. There is focal wall thickening of th e gastric antrum. SMALL BOWEL SERIES: There is a diverticulum of the second portion the duodenum. There are no dilated loops of bowel. No s tricture. Specifically, the terminal ileum is normal. Transit time to the colon was 1 hour. Surgical clips in the right upper quadrant are likely from cholecystectomy. IMPRESSION: 1. Focal wall thickening of the gastric antrum suspicious for malignancy. Endoscopy is recommended. I discussed this result with the patient and encouraged her to call her doctor to arrange endoscopy. Reviewed, dictated and finalized at location A. IMPRESSION: 1. Focal wall thickening of the gastric antrum suspicious for malignancy. Endos copy is recommended. I discussed this result with the patient and encouraged he r to call her doctor to arrange endoscopy.
== END 2022-08-24 08:37 | disposition home or self-care (01) ==
PROVIDERS: PCP Family Medicine; Visit Provider Internal Medicine Gastroenterology
DX: K52.9 Noninfective gastroenteritis and colitis, unspecified (principal); D64.9 Anemia, unspecified
CPT/HCPCS: 74246; 74248

== ENCOUNTER 2022-09-01 06:15 | Day surgery (SDC) | payer MEDICARE, SELFPAY ==
[2022-08-30 11:28] VITALS: BMI 22.1
[2022-08-30 12:00] VITALS: BMI 21.2
--- NOTE | 2022-08-31 13:50 | WPDANESEPPF ---
Anes - Initial Pre Proc Eval Procedure: Operation Date: 09/01/22 08:00 Proposed Procedures p Esophagogastroduodenoscopy - Chris Higgins MD Date/Time: 08/31/22 13:50 Surgeon: Chris Higgins MD Pre Op Diagnosis: ABN Findings of Diag.Imaging of Digestive Tract Patient Data Age: 72 Gender: F Height: 1.65 m Weight: 58 kg Allergies Allergy/AdvReac Type Severity Reaction Status Date / Time No Known Allergies Allergy Verified 09/01/22 06:39 Home Medications Medication Instructions Recorded Confirmed Type brimonidine 0.2 %-timolol 0.5 % 1 drop RIGHT EYE Q12H 01/02/19 09/01/22 History eye drops (Combigan) metformin 500 mg tablet,extended 1,000 mg PO BID #120 tabs 09/20/21 09/01/22 Rx release 24 hr atorvastatin 40 mg tablet 40 mg PO QHS #90 tabs 02/14/22 09/01/22 Rx spironolactone 50 mg tablet 100 mg PO DAILY #60 tabs 02/14/22 09/01/22 Rx tizanidine 2 mg tablet 2 mg PO QHS PRN muscle spasticity 06/07/22 09/01/22 Rx #90 tabs levothyroxine 75 mcg tablet 75 mcg PO DAILY #30 tabs 08/17/22 09/01/22 Rx Patient hx anesthesia problems: none Family hx anesthesia problems: none Results Review: All pre-operative results and documents have been reviewed as part of the pre-operative evaluation. [facility] Past Medical History Medical History Alopecia treated by automotive engineering technician Anemia (~02/05/21) hemoglobin 11.2, hematocrit 36.7 with MCV low at 77 on 02/05/2021. hemoglobin 10.0, iron 20 with 5% saturation and ferritin 5 with vitamin B12 443 and folic acid 9.8 on 05/31/2021. Hemoglobin 14.3 on 11/09/2021. Atherosclerotic heart disease of [place] coronary artery without angina pectoris mild irregularities on coronary artery CT angiogram followed by handbell choir director, Dr. Wyatt Aguirre Atypical chest pain BMI 22.0-22.9, adult BMI 23.0-23.9, adult BMI 24.0-24.9, adult Breast cancer screening by mammogram mammogram 05/10/2022 negative with no changes. Cervicalgia Chronic anxiety Chronic low back pain without sciatica Chronic right hip pain Colon cancer screening Fibromyalgia GERD (gastroesophageal reflux disease) (~08/24/22) spontaneous reflux on upper GI with small-bowel follow-through of 08/24/2022 with suspicious focal wall thickening of the gastric antrum with need for EGD. Hirsutism History of basal cell carcinoma the patient has been treated by automotive engineering technician for basal cell carcinoma left upper arm, chest, and on the back Hypothyroidism, unspecified TSH 1.88 with free T4 at 1.45 on 02/03/2021. TSH 1.98 on 08/17/2021. TSH 2.12 with free T4 1.72 on 05/30/2022. Left shoulder pain Low iron hemoglobin 10 with iron 20 with 5% saturation and ferritin 5 on 05/31/2021. Iron 87 with 26% saturation and ferritin 13 with hemoglobin 14.3 on 11/09/2021. iron 96 with 30% saturation and ferritin 28.9 on 01/04/2022. iron 68 with 18% saturation and ferritin 10.4 with hemoglobin 12.5 on 07/05/2022. Malabsorption Motion sickness Muscle spasm Nausea and vomiting Osteoporosis DEXA bone density on 01/11/2021 revealed T-score -1.2 at the spine, -1.8 left hip, -2.2 right hip , osteopenia. 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 no diabetic retinopathy 08/11/2021. No retinopathy 01/12/2022. no retinopathy 05/11/2022. Type 2 diabetes mellitus without complication, without long-term current use of insulin a fasting glucose 216 with hemoglobin A1c 8.3 on 02/03/2021 . Hemoglobin A1c 7.6 on 05/31/2021. Glucose 137 with hemoglobin A1c 6.4 on 11/09/2021.Glucose 137 with hemoglobin A1c 7.6 on 11/09/2021. Hemoglobin A1c 6.2 on 02/04/2022. Fasting glucose 150 with hemoglobin A1c 6.5 and urine microalbumin ratio of 8 on 05/30/2022. Vitamin B12 deficiency injections ev
--- NOTE | 2022-08-31 21:49 | PM.HPGS ---
History of Present Illness History of Present Illness Consent: Risks, benefits, and alternatives have been discussed and questions answered. Patient agrees to proceed with procedure. Chief complaint: ABN Findings of Diag.Imaging of Digestive Tract Narrative: Lacey Pascal is a 72 year old female Was referred for investigation of an abnormal upper GI. The findings were: IMPRESSION: 1. Focal wall thickening of the gastric antrum suspicious for malignancy. radiologist told her that this is probably a cancer. That has had her quite concerned obviously. She does have a tendency to have upset stomach kg after eating and has lost about 6 lb this year. She also has chronic anemia with iron deficiency.? She had a ferritin level of 4.4 last year with iron therapy it did go up to 63 and now is back down to 10. Hemoglobin was down to 9.7 last summer.? It did increase as high as 14.3 and now is 12.5 Review of Systems Review of Systems: All systems reviewed & are unremarkable except as noted in HPI and below PMFSH Past Medical History Medical History Alopecia treated by collating machine operator Anemia (~02/05/21) hemoglobin 11.2, hematocrit 36.7 with MCV low at 77 on 02/05/2021. hemoglobin 10.0, iron 20 with 5% saturation and ferritin 5 with vitamin B12 443 and folic acid 9.8 on 05/31/2021. Hemoglobin 14.3 on 11/09/2021. Atherosclerotic heart disease of [place] coronary artery without angina pectoris mild irregularities on coronary artery CT angiogram followed by ski edge painter, Dr. Wyatt Aguirre Atypical chest pain BMI 22.0-22.9, adult BMI 23.0-23.9, adult BMI 24.0-24.9, adult Breast cancer screening by mammogram mammogram 05/10/2022 negative with no changes. Cervicalgia Chronic anxiety Chronic low back pain without sciatica Chronic right hip pain Colon cancer screening Fibromyalgia GERD (gastroesophageal reflux disease) (~08/24/22) spontaneous reflux on upper GI with small-bowel follow-through of 08/24/2022 with suspicious focal wall thickening of the gastric antrum with need for EGD. Hirsutism History of basal cell carcinoma the patient has been treated by collating machine operator for basal cell carcinoma left upper arm, chest, and on the back Hypothyroidism, unspecified TSH 1.88 with free T4 at 1.45 on 02/03/2021. TSH 1.98 on 08/17/2021. TSH 2.12 with free T4 1.72 on 05/30/2022. Left shoulder pain Low iron hemoglobin 10 with iron 20 with 5% saturation and ferritin 5 on 05/31/2021. Iron 87 with 26% saturation and ferritin 13 with hemoglobin 14.3 on 11/09/2021. iron 96 with 30% saturation and ferritin 28.9 on 01/04/2022. iron 68 with 18% saturation and ferritin 10.4 with hemoglobin 12.5 on 07/05/2022. Malabsorption Motion sickness Muscle spasm Nausea and vomiting Osteoporosis DEXA bone density on 01/11/2021 revealed T-score -1.2 at the spine, -1.8 left hip, -2.2 right hip , osteopenia. 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 no diabetic retinopathy 08/11/2021. No retinopathy 01/12/2022. no retinopathy 05/11/2022. Type 2 diabetes mellitus without complication, without long-term current use of insulin a fasting glucose 216 with hemoglobin A1c 8.3 on 02/03/2021 . Hemoglobin A1c 7.6 on 05/31/2021. Glucose 137 with hemoglobin A1c 6.4 on 11/09/2021.Glucose 137 with hemoglobin A1c 7.6 on 11/09/2021. Hemoglobin A1c 6.2 on 02/04/2022. Fasting glucose 150 with hemoglobin A1c 6.5 and urine microalbumin ratio of 8 on 05/30/2022. Vitamin B12 deficiency injections every 3 weeks through soaker meat. B12 greater than 1000 with hemoglobin 13.6 and folic acid 8.9 on 03/29/2022. Vitamin D deficiency, unspecified vitamin-D 65.2 on 02/03/2021. Level normal at 35.4 on 05/29/2022 Surgical Histor
[2022-09-01 06:41] VITALS: BP 133/65; PULSE 88; RESP 16; TEMP 36.9; O2SAT 100
[2022-09-01 07:00] LABS: Glucose Point of Care 157 mg/dl (65-105)
[2022-09-01] MEDS: LACTATED RINGERS 1,000 ML 150 ML IV CONT (07:41)
[2022-09-01 07:58] VITALS: BP 97/54; PULSE 80; RESP 16; O2SAT 99
[2022-09-01 08:08] VITALS: BP 111/57; PULSE 80; RESP 18; O2SAT 100
[2022-09-01 08:18] VITALS: BP 118/75; PULSE 76; RESP 16; O2SAT 98
--- NOTE | 2022-09-01 10:52 | WPDANESPN ---
Anes - Prog Note Post-Op Date/Time: 09/01/22 10:52 Cardiovascular status: normal Respiratory status: normal Airway patency: baseline Mental status: baseline Post-Op hydration status: normal Vital Signs: Last Vital Signs Temp 36.9 C 09/01/22 06:41 Pulse 76 09/01/22 08:18 Resp 16 09/01/22 08:18 BP 118/75 09/01/22 08:18 Pulse Ox 98 09/01/22 08:18 O2 Del Method Room Air 09/01/22 08:18 Pain Score (VAS): 0 I/O: Intake & Output 08/31/22 09/01/22 09/01/22 23:59 07:59 15:59 Intake Total 400 450 Balance 400 450 09/01/22 06:52 POC Capillary Glucose 157 H Post-procedural complaints: none Patient Feedback: Patient satisfied with anesthetic care. Other Findings: Patient vital signs back to baseline. Patient denies nausea and vomiting. Patient's pain under control. Patient OK for discharge.
== END 2022-09-01 08:47 | disposition home or self-care (01) ==
PROVIDERS: PCP Family Medicine; Visit Provider Internal Medicine Gastroenterology
PROC: 0DJ08ZZ Inspection of Upper Intestinal Tract, Via Natural or Artificial Opening Endoscopic (ICD-10-PCS; CPT 43235; principal; 2022-09-01 08:00)
DX: R93.3 Abnormal findings on diagnostic imaging of other parts of digestive tract (principal); K21.9 Gastro-esophageal reflux disease without esophagitis; D37.1 Neoplasm of uncertain behavior of stomach; R63.4 Abnormal weight loss
CPT/HCPCS: 43239

== ENCOUNTER 2022-09-01 08:00 | Outpatient (NON) | payer MEDICARE, SELFPAY | END 2022-09-01 08:01 | disposition home or self-care (01) | LOC: ANHLAB 09-02 10:16 | PROVIDERS: PCP Family Medicine; Visit Provider Internal Medicine Gastroenterology | DX: K21.9 Gastro-esophageal reflux disease without esophagitis (principal); C16.3 Malignant neoplasm of pyloric antrum | CPT/HCPCS: 88305; 88342 ==

== ENCOUNTER → 2024-12-12 11:58 | Outpatient (CLI) | payer MEDICARE, SELFPAY ==
--- OUTSIDE RECORDS SUMMARY | 2010-01-18 18:00 | XMS_ITS | Continuity of Care Document ---
Author Organization [employer] [facility] Address [address] [place] [phone] Phone Care Team Providers Care Privacy Director Name Role Phone [facility] Unavailable Unavail able Procedures Procedure Date Contact Lens Hydrophilic, Spherical Sales Tax Eye Exam & Treatment Ophthalmoscopy, Subsequent Ophthalmoscopy, Subsequent Contact Lens Hydrophilic, Spherical Medical Tax Eye Exam Established Pt Ophthalmoscopy, Subsequent Ophthalmoscopy, Subsequent Vision Svcs Frames Purchases BF Hi Index Sphcyl Goodman To +/-4d .12-2d Lens-Index>1.66Plas;>1.80Glas 0 Anti-reflective Coating Bif Sphcyl Hi Index+/-7.25 To +/-12d Sph Roll And/or Croatian Vision Svcs Frames Purchases Medical Tax Eye Exam & Treatment Refraction Eye Exam & Treatment Ophthalmoscopy, Subsequent Optic Nerve Topography Contact Lens Hydrophilic, Spherical Tax - Medical Eye Exam Established Pt Ophthalmoscopy, Subsequent Ophthalmoscopy, Subsequent Optic Nerve Topography Miscellaneus Eye Exam Established Pt Ophthalmoscopy, Subsequent Ophthalmoscopy, Subsequent Optic Nerve Topography Contact Lens Hydrophilic, Spherical Tax - Medical Injection Eye Drug Kenalog/Triamcinolone Acetonide Inj Post-op Follow-up Visit Ophthalmoscopy, Subsequent Optic Nerve Topography Eye Exam & Treatment Ophthalmoscopy, Subsequent Ophthalmoscopy, Subsequent After Cataract Laser Surgery Office/outpatient Visit, Est Office/outpatient Visit, Est Eye Exam Established Pt Eye Exam Established Pt Eye Exam & Treatment Ophthalmoscopy, Subsequent Optic Nerve Topography Contact Lens Hydrophilic, Spherical Tax - Medical Eye Exam Established Pt Injection Eye Drug Kenalog/Triamcinolone Acetonide Inj Ophthalmoscopy, Subsequent Optic Nerve Topography Office/outpatient Visit, Est Refraction Eye Exam Established Pt Ophthalmoscopy, Subsequent Eye Exam Established Pt Optic Nerve Topography Eye Exam Established Pt Ophthalmoscopy, Subsequent Ophthalmoscopy, Subsequent Eye Exam Established Pt Ophthalmoscopy, Subsequent Eye Exam Established Pt Ophthalmoscopy, Subsequent Eye Exam Established Pt Ophthalmoscopy, Subsequent Eye Exam Established Pt Ophthalmoscopy, Subsequent I[employer]Master Eye Exam & Treatment Ophthalmoscopy, Subsequent Ophthalmoscopy, Subsequent Optic Nerve Topography Eye Exam Established Pt Ophthalmoscopy, Subsequent Ophthalmoscopy, Subsequent Eye Exam Established Pt Ophthalmoscopy, Subsequent Ophthalmoscopy, Subsequent Eye Exam Established Pt Ophthalmoscopy, Subsequent Ophthalmoscopy, Subsequent Post-op Follow-up Visit Ophthalmoscopy, Subsequent Ophthalmoscopy, Subsequent Ophthalmoscopy Ophthalmoscopy Office Consultation Eye Exam Established Pt Advance Directives Directive Yes / No Effective Date File Name No Information Encounters Encounter Description Practice Location Reason(s) For Visit Diagnoses Date Provider Providers Copied on Encounter [facility], [address], [place], [place], [id number], [place] tel:[phone] SEC [facility] No Information 4-201 0 [facility] . [address], [address], [place], [place], [address], [place]. tel:[phone] [facility], [address], [place], [place], [address], [place] tel:[phone] [facility] No Information 0 Sophie Pierre. [address] [place] [address], [address], [place]. tel:[phone] Referring Provider: Ignacio Lee, [address] [place], [address]. tel:[phone] [facility], [address], [place], [place], [address], [place] tel:[phone] [facility] No Information 4-201 0 [place] OD Anthony. [address], [place], [address], [place]. tel:[phone] [facility], [address], [place], [place], [address], [place] tel:[phone] [place] [address] No Information 0-201 0 Sophie Pierre. [address] [place] [address], [address], [place]. tel:[phone] Referring Provider: Ignacio Lee, [address] [place], [address]. tel:[phone] [facility], [address], [place], [place], [address], [place] tel:[phone] [facility] No Information Aug- 1-201 0 [facility] . [address], [address], [place], [place], [address], [place]. tel:[phone] Referring Provider: Anthony Christie, [facility], [place], [address]. tel:[phone] g Provider: Kylah Mcdaniels, [address] [place] [address], [address]. tel:[phone] [address] [place] [address] [facility], [address] [place] [address] [address], [place], [place], [address], [place] tel:[phone] [place] [address] No Information Aug- 1-201 0 [facility] . [address], [address], [place], [place], [address], [place]. tel:[phone] Referring Provider: Anthony Christie, [address], [place], [address]. tel:[phone] g Provider: Kylah Mcdaniels, [address] [place] [address], [address]. tel:[phone] [facility], [address], [place], [place], [address], [place] tel:[phone] [facility] No Information 5-201 0 [place] EUNICE Cruz. [address] , [address], [place], [address], [place]. tel:[phone] [facility], [address], [place], [place], [address], [place] tel:[phone] [facility] No Information García-1 4-201 0 Sophie Pierre. [address] [place], [facility], [place]. tel:[phone] Referring Provider: Ignacio Lee, [address] [place], [facility]. tel:[phone] [facility], [address], [place], [place], [address], [place] tel:[phone] [facility] [place] No Information García-0 1-201 0 [place] OD Anthony. [address], [place], [facility], [place]. tel:[phone] [facility], [address], [place], [place], [address], [place] tel:[phone] [facility] No Information Apr-1 2-201 0 Sophie Pierre. [address] [place], [facility], [place]. tel:[phone] Referring Provider: Ignacio Lee, [address] [place], [facility]. tel:[phone] [facility], [address] [place] [address] [address], [place], [place], [address], [place] tel:[phone] [facility] [place] No Information Mar-2 9-201 0 Sophie Pierre. [address] [place], [facility], [place]. tel:[phone] [facility], [address], [place], [place], [address], [place] tel:[phone] [facility] No Information Mar-1 8-201 0 Sophie Pierre. [address] [place], [address], [place]. tel:[phone] Referring Provider: Ignacio Lee, [address] [place], [address]. tel:[phone] [facility], [address], [place], [place], [address], [place] tel:[phone] [place] [address] Corporate [place] No Information Mar-0 4-201 0 [place] OD Anthony. [address], [place], [address], [place]. tel:[phone] [facility], [address], [place], [place], [address], [place] tel:[phone] [place] [address] No Information Feb-1 8-201 0 Sophie Pierre. [address] [place], [facility], [place]. tel:[phone] Referring Provider: Ignacio Lee, [address] [place], [address]. tel:[phone] [facility], [address], [place], [place], [address], [place] tel:[phone] [facility] No Information Feb-1 5-201 0 Sophie Pierre. [address] [place], [facility], [place]. tel:[phone] Referring Provider: Ignacio Lee, [address] [place], [address]. tel:[phone] [address] [place] [address], [address], [place], [place], [address], [place] tel:[phone] [place] [address] No Information Feb-0 1-201 0 Sophie Pierre. [address] [place] [address], [facility], [place]. tel:[phone] Referring Provider: Ignacio Lee, [address] [facility] [place], [place], [facility]. tel:[phone] [facility], [address], [place], [place], [address], [place] tel:[phone] [facility] No Information Feb-2 0-201 0 Perez Vernell. [address] , [address], [place], [facility], [place]. tel:[phone] Referring Provider: Bandar Mckeon OD, [address], [place], [facility]. tel:[phone] Office/outpati ent Visit, [facility], [address] [place] [address] [address], [place], [place], [address], [place] tel:[phone] [facility] [place] No Information 2-201 0 [place] OD Anthony. [address] , [address], [place], [facility], [place]. tel:[phone] Office/outpati ent Visit, [facility], [address] [place] [address] [address], [place], [place], [address], [place] tel:[phone] [facility] No Information Feb-0 8-201 0 [place] OD Anthony. [address] , [address], [place], [facility], [place]. tel:[phone] [facility], [address], [place], [place], [address], [place] [phone] [facility] No Information Feb-0 6-201 0 [place] OD Anthony. [address] , [address], [place], [facility], [place]. tel:[phone] [facility], [address], [place], [place], [address], [place] tel:[phone] [facility] No Information Noel-0 5-201 0 Perez Vernell. [address], [address], [place], [address], [place]. tel:[phone] Referring Provider: Ignacio Lee, [address] [place], [facility]. tel:[phone] [facility], [address], [place], [place], [address], [place] tel:[phone] [facility] No Information Jan-2 1200 9 Sophie Pierre. [address] [place], [facility], [place]. tel:[phone] Referring Provider: Ignacio Lee, [address] [place], [facility]. tel:[phone] [facility], [address], [place], [place], [address], [place] tel:[phone] [facility] No Information Jan-0 7-200 9 Sophie Pierre. [address] [place], [facility], [place]. tel:[phone] Referring Provider: Ignacio Lee, [address] [place], [facility]. tel:[phone] Office/outpati ent Visit, [facility], [address], [place], [place], [address], [place] tel:[phone] [facility] No Information 9-200 9 [place] OD Anthony. [address], [place], [address], [place]. tel:[phone] [facility], [address], [place], [place], [address], [place] tel:[phone] [facility] No Information 0 9-200 9 Sophie Pierre. [address] [place], [facility], [place]. tel:[phone] [facility], [address], [place], [place], [address], [place] [phone] [facility] No Information Nov-2 6-200 9 Sophie Pierre. [address] [place], [address], [place]. tel:[phone] Referring Provider: Ignacio Lee, [address] [place], [address]. tel:[phone] [place] [address] [facility], [address], [place], [place], [address], [place] tel:[phone] [facility] No Information Oct-2 8-200 9 Sophie Pierre. [address] [place], [address], [place]. tel:[phone] Referring Provider: Ignacio Lee, [address] [place], [address]. tel:[phone] [facility], [address], [place], [place], [address], [place] [phone] [facility] No Information Sep-2 4-200 9 Sophie Pierre. [address] [place], [address], [place]. tel:[phone] Referring Provider: Ignacio Lee, [address] [place], [address]. tel:[phone] [facility], [address], [place], [place], [address], [place] tel:[phone] [facility] No Information Aug-0 3-200 9 Sophie Pierre. [address] [place], [address], [place]. tel:[phone] Referring Provider: Ignacio Lee, [address] [place], [address]. tel:[phone] [facility], [address], [place], [place], [address], [place] tel:[phone] [facility] [address] No Information 9 Sophie Pierre. [address] [place], [address], [place]. tel:[phone] Referring Provider: Ignacio Lee, [address] [place], [facility]. tel:[phone] [facility], [address] [place] [address] [address], [place], [place], [address], [place] tel:[phone] [facility] No Information 9 Sophie Pierre. [address] [place], [address], [place]. tel:[phone] Referring Provider: Ignacio Lee, [address] [place], [facility]. tel:[phone] [facility], [address] [place] [address] [address], [place], [place], [address], [place] tel:[phone] [facility] No Information 9 Ana Matt. [facility] , [address], [place], [facility], [place]. tel:[phone] Referring Provider: Vernell Bills, [address], [place], [facility]. tel:[phone] [facility], [address] [place] [address] [address], [place], [place], [address], [place] [phone] [facility] No Information 9 Sophie Pierre. [address] [place], [address], [place]. tel:[phone] Referring Provider: Ignacio Lee, [address] [place], [address]. tel:[phone] [facility], [address] [place] [address] [address], [place], [place], [address], [place] tel:[phone] [facility] No Information 9 Sophie Pierre. [address] [place], [address], [place]. tel:[phone] Referring Provider: Ignacio Lee, [address] [place], [address]. tel:[phone] [address] [place] [address] [facility], [address] [place] [address] [address], [place], [place], [address], [place] tel:[phone] [facility] No Information 9 Sophie Pierre. [address] [place], [address], [place]. tel:[phone] Referring Provider: Ignacio Lee, [address] [place], [facility]. tel:[phone] [address] [place] [address], [address] [place] [address] [address], [place], [place], [address], [place] tel:[phone] [facility] No Information 9 Sophie Pierre. [address] [place], [address], [place]. tel:[phone] Referring Provider: Ignacio Lee, [address] [place], [address]. tel:[phone] [address] [place] [address], [address] [place] [address] [address], [place], [place], [address], [place] tel:[phone] [facility] No Information 9 Sophie Pierre. [address] [place], [address], [place]. tel:[phone] Office Consultation [facility], [address] [place] [address] [address], [place], [place], [address], [place] tel:[phone] [facility] No Information 9 Sophie Pierre. [address] [place], [address], [place]. tel:[phone] Referring Provider: Anthony [place] OD Shahnaz, [address], [place], [address]. tel:[phone] [facility], [address], [place], [place], [address], [place] tel:[phone] [facility] No Information 200 9 [place] EUNICE Cruz. [address] , [address], [place], [address], [place]. tel:[phone] Referring Provider: Bandar Mckeon, [address] [place] [address], [address]. tel:[phone] Family History Family Member Type Diagnosis Age At Onset No Information Payers Payer name Insurance type Covered green party ID Authoriza tion(s) No Information Social History Type Description Quantity Date Captured Comments Sex Female Smoking Status No Information Chief Complaint And Reason For Visit No Information Reason For Referral Reason For Referral No Information History Of Present Illness Encounter Date Complaint History Of Prese nt Illness No Information Functional Status Date Functional Assessmen t No Information Instructions Date Instruction Additional Infor mation No Information Assessments Type Assessment Date No Information Patient Care Teams Name Effective Dates (start - stop) Status Members No Information
--- NOTE | ~2024-12-12 | XR_ITS ---
EXAMINATION: XR foot LT min 3V, 12/12/2024 12:03 PRODUCTION CONTROL PLANNER HISTORY: M79.672 - Pain in left foot COMPARISON: No comparisons available. Findings: No acute fracture or malalignment. No significant degenerative changes. Soft tissues unremarkable. Impression: No acute fracture or malalignment. Reviewed, dictated and finalized at location P. UCTION CONTROL PLANNER Impression: No acute fracture or malalignment.
--- NOTE | ~2024-12-12 | XR_ITS ---
EXAMINATION: XR foot RT min 3V, 12/12/2024 12:12 RETAIL LEADER HISTORY: M79.671 - Pain in right foot COMPARISON: No comparisons available. Findings: No acute fracture or malalignment. Moderate degenerative changes of the first metatarsal phalangeal joint Soft tissues unremarkable. Impression: No acute fracture or malalignment. Reviewed, dictated and finalized at location P. [place] LEADER Impression: No acute fracture or malalignment.
--- OUTSIDE RECORDS SUMMARY | 2024-12-12 19:25 | XMS_ITS | Encounter Summary ---
Author Organization [facility] Address [address] [place] [address] Phone Care Team Providers Care Manufacturing Assembler Name Role Phone Arvind Montemayor MD Primary Care Provider [phone] Andre Cunningham MD Unavailable [phone] Berta Garcia MD Unavailable [phone] Amanda Hare Unavailable Unavailable Encounter Details Date Type Department Care Team (Latest Contact Info) Description 11/04/2020 Orders Only [facility] Scanning, Provider Social History Tobacco Use Types Packs/Day Years Used Date Smoking Tobacco: Never Smokeless Tobacco: Never Comments Unknown Sex and Gender Information Value Date Recorded Sex Assigned at Not on file Legal Sex Female 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 Gender Identity Female 09/15/2022 2:56 PM CDT Sexual Orientation Not on file documented as of this encounter Plan of Treatment Not on file documented as of this encounter Procedures Procedure Name Priority Date/Time Associated Diagnosis Comments SCAN - RADIOLOGY/IMAGING 11/04/2020 documented in this encounter Results * SCAN - RADIOLOGY/IMAGING (11/04/2020) Anatomical Region Laterality Modality Other us Provider Scanning Final Result documented in this encounter Visit Diagnoses Not on filedocumented in this encounter Care Teams Manufacturing Assembler Relationship Specialty Start Date End Date Arvind Montemayor MD [address] [address] PCP - General Family Medicine 09/14/20 Andre Cunningham MD [address] [place] [address] Medical Oncologist Medical Oncology 10/05/22 Berta Garcia MD [address] [place], [place] [id number] Consulting Physician Gastroenterology 10/05/22 Amanda Hare RMA Surgical Prehabilitation and Readiness (SPAR) Coordinator 01/09/23 01/09/23 documented as of this encounter
--- OUTSIDE RECORDS SUMMARY | 2024-12-12 19:25 | XMS_ITS | Encounter Summary ---
Author Organization [facility] Address [address] [place] [address] Phone Care Team Providers Care Door To Door Selling Distributor Name Role Phone Arvind Montmeayor MD Primary Care Provider [phone] Andre Cunningham MD Unavailable EarlyBerta MD Unavailable [phone] Amanda Hare Unavailable Unavailable Encounter Details Date Type Department Care Team (Latest Contact Info) Description 07/25/2022 Orders Only [facility] Scanning, Provider Social History Tobacco Use Types Packs/Day Years Used Date Smoking Tobacco: Never Smokeless Tobacco: Never Comments Unknown Sex and Gender Information Value Date Recorded Sex Assigned at Not on file 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 Gender Identity Female 09/15/2022 2:56 PM CDT Sexual Orientation Not on file documented as of this encounter Plan of Treatment Not on file documented as of this encounter Procedures Procedure Name Priority Date/Time Associated Diagnosis Comments SCAN - RADIOLOGY/IMAGING 07/25/2022 documented in this encounter Results * SCAN - RADIOLOGY/IMAGING (07/25/2022) Anatomical Region Laterality Modality Other us Provider Scanning Edited Result - Final documented in this encounter Visit Diagnoses Not on filedocumented in this encounter Care Teams Door To Door Selling Distributor Relationship Specialty Start Date End Date Arvind Montemayor MD [address] [address] PCP - General Family Medicine 09/14/20 Andre Cunningham MD [address] [place] [address] Medical Oncologist Medical Oncology 10/05/22 Berta Garcia MD [address] [place], [place] [id number] Consulting Physician Gastroenterology 10/05/22 Amanda Hare RMA Surgical Prehabilitation and Readiness (SPAR) Coordinator 01/09/23 01/09/23 documented as of this encounter
--- OUTSIDE RECORDS SUMMARY | 2024-12-12 19:25 | XMS_ITS ---
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 B12 deficiency anemia 09/05/2023 Acute postoperative abdominal pain 01/26/2023 Requires daily management of epidural infusion 1 03/29/2022 Malignant neoplasm of pyloric antrum 01/16/2023 Dehydration 11/08/2022 Chemotherapy-induced neutropenia 10/20/2022 Malignant neoplasm of antrum of stomach 09/29/19 23 Hyperlipidemia associated with type 2 diabetes dharmesh clarkitus 09/19/2020 Essential hypertension 09/19/2020 Other chest pain 09/14/2020 Current Treatment and Therapy Plans cyanocobalamin - (Vitamin B12) injection every 4 weeks* Plan Start Date: 12/12/2023 Plan Provider:Andre Cunningham MD Linked Problems Gastric adenocarcinoma (HCC) Other vitamin B12 deficiency anemia Treatment Medications No medications scheduled. Hydration Therapy Plan* Plan Start Date:11/08/2022 Plan Provider:Andre Cunningham MD Linked Problems Malignant neoplasm of antrum of stomachDehydration Treatment Medications No medications scheduled. iron dextran (INFED) infusion* Plan Start Date:10/10/2023 Plan Provider:Andre Cunningham MD Linked Problems B12 deficiency anemiaMaligna nt neoplasm of antrum of stomach Treatment Medications No medications scheduled. Past Treatment and Therapy Plans Oncology Chemotherapy Treatment Plan Name Start Date Discontinue Date Treatment Medications Discontinue Reason Plan Provider Cycles FLOT C1-4 (Docetaxel / oxaliplatin / leucovorin / fluorouracil) 14 Day Cycles - Gastric 3 09/01/2023 DOCEtaxel (TAXOTERE)DOCE taxel (TAXOTERE) IVPB in 100 mL (vial 20mg/mL)DOCEta xel (TAXOTERE) IVPB in 250 mL (vial 20mg/mL)fluoro uracil (ADRUCIL)fluor ouracil (ADRUCIL) infusion - for home infusion (ADRUCIL)leuco vorinleucovori n IVPB in 250 mLoxaliplatin (ELOXATIN)oxal iplatin (ELOXATIN) IVPB Therapy Complete Andre Cunningham MD 8 of 9 cycles started Specialty Infusion Treatment Plan Name Start Date Discontinue Date Treatment Medications Discontinue Reason Plan Provider iron sucrose (Venofer) Infusion 09/12/2023 10/10/2023 No medications scheduled. Toxicity/Complic ation Andre Cunningham MD Lifetime Dose Tracking * Chemical Lifetime Dose Automatic Entry Manual Entr y Fluoro Time 0.28 minutes 0.28 minutes 0 minutes Air kerma at the reference point (Ka,r) 1.19 mGy 1 .19 mGy 0 mGy DLP 1,767 mGycm 1,767 mGycm 0 mGycm
--- OUTSIDE RECORDS SUMMARY | 2024-12-12 19:25 | XMS_ITS | Clinical Summary ---
Author Organization [facility] [address] Address [address] [place] [address] Care Team Providers Care Supervisor Burling And Joining Name Role Phone Arvind Montemayor MD Primary Care Provider [phone] Andre Cunningham MD Unavailable Early, Berta Ponce MD Unavailable [phone] Allergies Active Allergy Reactions Criticality Noted Date Comments Semaglutide Diarrhea Low 03/12/2024 Sodium Ferric Gluconate Complex Itching,Nausea only Low 09/26/2023 47 minutes into infusion patient developed itching in legs and back followed by nausea and dry heaving. Medications metFORMIN XR (GLUCOPHAGE XR) 500 mg 24 hr tablet Take 2 tablets (1,000 mg total) by mouth 2 (two) times a day 1 Active levothyroxine (SYNTHROID) 75 mcg tablet Take 1 tablet (75 mcg total) by mouth front desk lead before breakfast 1 Active lidocaine-priloc luis (EMLA) cream Apply topically as needed for other (Apply to port area 20 min prior to access) 30 g 1 3 Active timolol (TIMOPTIC) 0.5 % ophthalmic solution Administer 1 drop into the right eye 2 (two) times a day 3 Active brimonidine (ALPHAGAN) 0.2 % ophthalmic solution Administer 1 drop into the right eye 2 (two) times a day 3 Active betamethasone dipropionate (DIPROLENE) 0.05 % ointment 3 Active nystatin powder Apply topically 4 (four) times a day 15 g 3 Active fluticasone propionate (FLONASE) 50 mcg/actuation nasal spray Administer 1 spray into each nostril daily as needed for rhinitis Active cholecalciferol (Vitamin D3) 1,000 unit capsule Take 1 capsule (1,000 Units total) by mouth every morning Active docusate sodium (COLACE) 50 mg capsule Take 1 capsule (50 mg total) by mouth daily Active calcium carbonate (TUMS) 500 mg (200 mg elemental calcium) chewable tablet Take 1 tablet/chew tab (500 mg total) by mouth 3 (three) times a day as needed for indigestion or heartburn 60 tablet 3 Active Additional Information Patient not taking.Reported on 01/15/2024 lidocaine (ASPERCREME) 4 % adhesive patch,medicated Place 1 patch on the skin daily for 14 days 14 patch 3 Active al & mag hydroxide simethicone-diph enhydramine-lido erwin-nystatin (MAGIC MOUTHWASH) suspension 1-1-1-1 Apply 10 mL to the mouth or throat every 4 (four) hours as needed (Mouth sores) 300 mL 3 4 Active Additional Information Patient not taking.Reported on 06/19/2024 famotidine (PEPCID) 40 mg tablet Take 1 tablet (40 mg total) by mouth nightly 30 tablet 11 4 Active glimepiride (AMARYL) 2 mg tablet TAKE 1 TABLET BY MOUTH EVERY DAY IN THE MORNING WITH BREAKFAST 4 Active Antacid Regular Strength 200-200-20 mg/5 mL suspension QD 4 Active mometasone (ELOCON) 0.1 % cream 4 Active spironolactone (ALDACTONE) 100 mg tablet Take 1 tablet (100 mg total) by mouth daily 4 Active valACYclovir (VALTREX) 1 gram tablet 4 Active syringe with needle (Syringe 3cc/54Sn9-9/2) 3 mL 21 gauge x 1 1/2 syringeIndicatio ns:for B-12 injection 3 each every 3 (three) months 3 each 2 4 Active brimonidine-aurelio loL (Combigan) 0.2-0.5 % ophthalmic solution every 12 hours Activ e doxycycline hyclate 100 mg capsule TAKE 1 CAPSULE BY MOUTH TWICE A DAY WITH FOOD 4 Active mupirocin (BACTROBAN) 2 % ointment APPLY TO AFFECTED AREA TWICE A DAY DIRECTED 4 Active atorvastatin (LIPITOR) 80 mg tablet 5 Active syringe with needle 1 mL 25 gauge x 5/8 syringe 1 each every 30 (thirty) days 1 each 2 5 Active calcium carbonate (TUMS ORAL) Take by mouth QD Active pantoprazole DR (PROTONIX) 40 mg EC tabletIndication s:Treatment of Non-Bleeding Gastric Disorder Take 1 tablet (40 mg total) by mouth 2 (two) times a day 60 tablet 11 5 06/15/19 26 Active OLANZapine (ZyPREXA) 2.5 mg tablet Take 1 tablet (2.5 mg total) by mouth nightly 30 tablet 3 5 Active cyanocobalamin, vitamin B-12, 1,000 mcg/mL kit Inject 1,000 mcg as directed daily for 7 days, THEN 1,000 mcg once a week for 28 days, THEN 1,000 mcg every 30 (thirty) days. 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 Medicine Oncology [address] [facility] [address] [place] [address] Andre Cunningham MD Malignant neoplasm of antrum of stomach (Primary Dx) 09/18/2024 Orders Only [facility] [address] [facility] [address] [place] [address] Tereza Gresham RN 09/17/2024 2:15 PM CDT Office Visit [facility] [address] [place] [address] Floor [address] [place] [address] Andre Cunningham MD Gastric adenocarcinoma (HCC) (Primary Dx); Other vitamin B12 deficiency anemia 09/17/2024 1:15 PM CDT Clinical Support [facility] On[facility] Lab [facility] [address] [place] [address] Gastric adenocarcinoma (HCC) 09/17/2024 12:45 PM CDT Clinical Support [facility] - Lab Collection [address] [facility] Floor [address] [place] [address] Gastric adenocarcinoma (HCC); Malignant neoplasm of antrum of stomach 09/17/2024 11:52 AM CDT - 09/17/2024 11:59 PM CDT Hospital Encounter [facility] [place] [address] [facility] [address] [place] [address] Gastric adenocarcinoma (HCC) Discharge Disposition: Discharge to home or self care 09/17/2024 Orders Only [facility] Scanning, Provider from Last 3 Months Immunizations Immunization Administration Dates Next Due COVID-19 mRNA ([employer]) 0.3 m L (30 mcg) vaccine (12 years and up) 11/15/2022 Influenza, Quad, Adjuvantate d, Intramuscular 11/09/2021,11/20/2019 Influenza, Quadrivalent, Lissy l Culture-based MDCK, Preservative Free, Antibiotic Free, Intramuscular 01/03/2023 Influenza, Quadrivalent, Hig h Dose, Preservative Free, Intrr 11/07/2020 Influenza, Trivalent, High D ose, Split, Preservative Free, Intramuscular 11/28/2018,11/30/2017,11/24/2016,11/23 Influenza, Trivalent, IM (MDV) 11/26/2013 Influenza, Trivalent, Preser vative Free, Intramuscular 11/16/2014 Pfizer SARS-CoV-2 Monovalent Vaccination (12+ Yrs) PURPLE 12/03/2020,04/14/2020,03/17/2020 Pfizer Sars-Cov-2 Bivalent V accination (12+ YRS) 11/09/2021,02/09/2021,12/03/2020,04/14,03/17/2020 Pneumococcal Polysaccharide PPV23 11/20/2019 ZOSTER LIVE 07/03/2013 Surgical History Surgery Date Site/Laterality Comments HI CHOLECYSTECTOMY 02/06/1998 - 02/05/1999 Cholecystectomy - (Added by TW Conv) RETINAL DETACHMENT SURGERY 02/06/2010 - 02/05/2011 Left KIDNEY STONE SURGERY 02/06/1999 - 02/06/2000 PARS PLANA VITRECTOMY W/ REPAIR OF MACULAR HOLE 02/06/2018 - 02/05/2019 Right TUMOR REMOVAL stomach Medical History Medical History Date Comments Personal history of urinary calculi Nephrolithiasis - surgically removed (Added by TW Conv) Diabetes mellitus Dyslipidemia Thyroid disease Irritable bowel syndrome Chronic anxiety Hyperlipidemia Basal cell carcinoma Glaucoma Kidney stones PONV (postoperative nausea a nd vomiting) Awareness under anesthesia Stomach cancer (HCC) Chronic diarrhea Type 2 diabetes mellitus Hypothyroidism Malignant neoplasm of antrum of stomach 09/28/2022 Nausea 09/21/2023 Family History Medical History Relation Name Comments Arrhythmia Brother pacemaker Lung cancer Father Heart attack Mother Thyroid cancer Niece 1 Thyroid cancer Niece 2 Cancer Other 1 Reported A Hist ory Of Cancer - son of neuroendocrine tumor at age 32, MGM and (M)aunt with ovarian ca, (P)aunt had cervical ca (Added by TW Conv) Lung cancer Other 2 Malignant Neopl asm Bronchus and Lung - dad who smoked (Added by TW Conv) neuroendocrine tumor Son Anesthesia problems Neg Hx Relation Name Status Comments Brother Father (Age 60) Mother (Age 70) Niece 1 Niece 2 Other 1 Other 2 Son Social History Tobacco Use Types Packs/Day Years Used Date Smoking Tobacco: Never Passive Smoke Exposure: Never Smokeless Tobacco: Never Tobacco Cessation:Counseling Given: Not Answered AUDIT-C Answer Date Recorded Q1: How often do you have a drink containing alc ohol? Never 10/11/2023 Average Number of Drinks Not on file 024 Frequency of Binge Drinking Not on file 05/2023 Personal Safety Answer Date Recorded Have you ever been in or are you currently in a harmful physical or emotional relationship or is someone making you feel afraid or unsafe? 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 Gender Identity Female 09/15/2022 2:56 PM CDT Sexual Orientation Not on file Last Filed Vital Signs Vital Sign Reading Time Taken Comments Blood Pressure 124/65 09/17/2024 1:48 PM CDT Pulse 75 09/17/2024 1:48 PM CDT Temperature 36.1 C (97 F) 09/17/2024 1:48 PM CDT Respiratory Rate 18 09/17/2024 1:48 PM CDT Oxygen Saturation 98% 09/17/2024 1:48 PM CDT Inhaled Oxygen Concentration - - Weight 59 kg (130 lb) 09/17/2024 1:48 PM CDT Height 160 cm (5' 2.99) 09/17/2024 1:48 PM CDT Body Mass Index 23.03 09/17/2024 1:48 PM CDT Plan of Treatment Health Maintenance Due Date Last Done Comments Albumin Creatinine Ratio, Urine 1949 Colon Cancer Screening-Colonoscopy 1950 Depression Screening 1949 Hepatitis C Screening 1950 Osteoporosis Screening-Bone Density Scan 1949 Dilated Eye Exam 1949 Foot Exam 1949 DTaP/Tdap/Td Vaccine (1 - Tdap) 1960 Hepatitis B Screening 04/07/1967 Zoster Vaccine (1 of 2) 08/28/2013 07/03/2013 Well Visit 65+ 2014 Pneumococcal vaccine 65+ (2 of 2 - PCV) 11/19/2020 11/20/2019 Hemoglobin A1C 04/25/2023 10/25/2022 Lipid Panel 06/29/2024 06/30/2023, 10/07, 09/10/2020 Covid-19 Vaccine ( season) 2024 11/15/2022, 11/09/2021, 02/09/2021, Additional history exists Influenza Vaccine (#1) 2024 , 11/09/2021, 11/07/2020, Additional history exists Fall Risk Assessment 10/10/2024 10/11/2023 eGFR 09/17/2025 09/17/2024, 06/06, 03/12/2024, Additional history exists Medical Devices Implanted Type Area Kidney Trimmer Device Identifier Shelf Expiration Date Model / Serial / Lot [employer] Powerport Airguard 8fr 1 Lumen Attachable Catheter Intermediate Latex Free [id number] - Sna - [id number] Implanted:Qty: 1 on 10/19/2022 by Zack Leonard MD at [facility] Other - see comments Right: Chest [employer] [id number] 03/08/2024 [id number] / NA / [id number] Procedures Procedure Name Priority Date/Time Associated Diagnosis Comments VITAMIN B12 Routine 09/17/2024 12:54 PM CDT Gastric adenocarcinoma (HCC) EGFR Routine 09/17/2024 12:54 PM CDT Gastric adenocarcinoma (HCC) DIFFERENTIAL AUTO Routine 09/17/2024 12:54 PM CDT Gastric adenocarcinoma (HCC) CBC WITH AUTO DIFFERENTIAL Routine 09/17/2024 12:54 PM CDT Gastric adenocarcinoma (HCC) COMPREHENSIVE METABOLIC PANEL Routine 09/17/2024 12:54 PM CDT Gastric adenocarcinoma (HCC) SIGNATERA ONLY Routine 09/17/2024 12:40 PM CDT Malignant neoplasm of antrum of stomach CT CHEST ABDOMEN PELVIS W CONTRAST Schedule Routine, Read Routine (OP Routine) 09/17/2024 12:20 PM CDT Gastric adenocarcinoma (HCC) SCAN - PATHOLOGY 09/17/2024 LIPID PANEL Routine 06/30/2023 12:41 PM CDT HEMOGLOBIN A1C Routine 10/25/2022 9:39 AM CDT from Last 3 Months or Most Recently Relevant to Health Maintenance Results * eGFR (09/17/2024 12:54 PM CDT) [facility] eGFR >90 >=60 mL/min/1. 73 m2 Comment: Interpretive Data Reference Interval Normal >/= 90 mL/min/1.73m2 Mildly decreased* 60 - 89 mL/min/1.73m2 Mildly to moderately decreased 45 - 59 mL/min/1.73m2 Moderately to severely decreased 30 - 44 mL/min/1.73m2 Severely decreased 15 - 29 mL/min/1.73m2 Kidney Failure < 15 mL/min/1.73m2 *Relative to young adult level Estimated glomerular filtration rate is determined by the 2020 CKD-EPI equation recommended by the National Kidney Foundation (A Unifying Approach to GFR Estimation: Recommendations of the NKF-ASK Task Force on Reassessing the Inclusion of Race in Diagnosing Kidney Disease, JASN 2020). The CKD-EPI equation should not be used for patients with unstable renal function and has not been validated in children and those over 70. Current interpretive data was last reviewed 2020. Blood 09/17/2024 12:5 4 PM CDT 09/17/2024 1:04 PM CDT [facility] Cunningham MD LAB BLOOD ORDERABLES Yasmeen casillas Result [facility] [place] [address] * Differential, auto (09/17/2024 12:54 PM CDT) [facility] Neutrophil abs 5.17 1.50 - 6.50 K/cumm Comment:Testing performed by : [facility] Heme Lab, [address] [place] [phone] Lymphocyte abs 1.35 0.80 - 3.30 K/cumm [facility] Comment:Testing performed by : [facility], [address] [place] [phone] Monocyte abs 0.53 0.20 - 0.80 K/cumm [facility] Comment:Testing performed by : [facility]e [facility], [address] [place] [phone] Eosinophil abs 0.14 0.00 - 0.50 K/cumm [facility] Comment:Testing performed by : [facility] Lab, [address] [place] [phone] Basophil abs 0.06 0.00 - 0.10 K/cumm [facility] Comment:Testing performed by : [facility] Lab, [address] [place] [phone] Neutrophil pct 71.4 % [facility] Comment: Interpretive Data Percent cell count reference ranges are not reported, since discordance with absolute values may lead to misinterpretation of CBC data. Current Interpretive Data was last revised on 2017. Testing performed by: [facility] Lab, [address] [place] [phone] Lymphocyte pct 18.6 % [facility] Comment: Interpretive Data Percent cell count reference ranges are not reported, since discordance with absolute values may lead to misinterpretation of CBC data. Current Interpretive Data was last revised on 2017. Testing performed by: [facility] Lab, [address] [place] [phone] Monocyte pct 7.4 % [facility] Comment: Interpretive Data Percent cell count reference ranges are not reported, since discordance with absolute values may lead to misinterpretation of CBC data. Current Interpretive Data was last revised on 2017. Testing performed by: [facility] Lab, [address] [place] [phone] Eosinophil pct 1.9 % [facility] Comment: Interpretive Data Percent cell count reference ranges are not reported, since discordance with absolute values may lead to misinterpretation of CBC data. Current Interpretive Data was last revised on 2017. Testing performed by: [facility] Lab, [address] [place] [phone] Basophil pct 0.8 % [facility] Comment: Interpretive Data Percent cell count reference ranges are not reported, since discordance with absolute values may lead to misinterpretation of CBC data. Current Interpretive Data was last revised on 2017. Testing performed by: [facility]e Lab, [address] [place] [address] Blood 09/17/2024 12:5 4 PM CDT 09/17/2024 1:00 PM CDT Yousif'Tk Cunningham MD LAB BLOOD ORDERABLES Yasmeen l Result [facility]ALIA [facility] [place] [address] * CBC with auto differential (09/17/2024 12:54 PM CDT) WBC 7.25 3.80 - 9.90 K/cumm Comment:Testing performed by : [facility] Heme Lab, [address] [place] [address] Hgb 13.1 11.9 - 15.5 g/dL MIGDALIA MURPHY Comment:Testing performed by : [facility]e Lab, [address] [place] [address] Hct 38.0 35.6 - 45.5 % [facility]ER[facility]ESUS MUR[facility] Comment:Testing performed by : [facility]e Lab, [address] [place] [address] Plt 205 150 - 400 K/cumm MIGDALIA MURPHY Comment:Testing performed by : [facility] Heme Lab, [address] [place] [address] MPV 7.7 6.8 - 10.4 fL MIGDALIA BJ Comment:Testing performed by : [facility] Heme Lab, [address] [place] [address] RBC 4.19 3.90 - 5.20 M/cumm [facility] Comment:Testing performed by : [facility] Heme Lab, [address] [place] [address] MCV 90.6 81.3 - 96.4 fL [facility]ER[facility]ESUS [facility] Comment:Testing performed by : [facility] Heme Lab, [address] [place] [address] MCH 31.3 27.1 - 33.3 pg CERJESUS MURPHY Comment:Testing performed by : [facility] Heme Lab, [address] [place] [phone] MCHC 34.5 32.3 - 35.7 g/dL [facility] Comment:Testing performed by : [facility] Heme Lab, [address] [place], [place] [phone] RDW CV 12.9 11.1 - 14.9 % [facility]ALIA [facility] Comment:Testing performed by : [facility] Heme Lab, [address] [place] [phone] NRBC abs 0.00 0.00 - 0.01 K/cumm [facility] Comment:Testing performed by : [facility]e [facility], [address] [place] [phone] Blood 09/17/2024 12:5 4 PM CDT 09/17/2024 1:00 PM CDT [facility] Cunningham MD LAB BLOOD ORDERABLES Yasmeen l Result Performing Organization Address City/[facility]/ZIP Co de Phone Number [facility] [place] [address] * (ABNORMAL) Vitamin B12 (09/17/2024 12:54 PM CDT) [facility] Vitamin B12 205(L) 230 - 1,250 pg/mL Blood 09/17/2024 12:5 4 PM CDT 09/17/2024 3:33 PM CDT [facility] Cunningham MD LAB BLOOD ORDERABLES Yasmeen l Result [facility] [place] [address] * (ABNORMAL) Comprehensive metabolic panel (09/17/2024 12:54 PM CDT) [facility] Sodium 138 135 - 145 mmol/L Potassium, pl 4.2 3.3 - 4.9 mmol/L [facility] Chloride 105 97 - 110 mmol/L [facility] CO2 25 22 - 32 mmol/L [facility] Anion gap 8 2 - 15 mmol/L [facility] BUN 12 6 - 25 mg/dL [facility] Creatinine 0.56(L) 0.60 - 1.10 mg/dL [facility] Glucose 194 70 - 199 mg/dL [facility] Comment: Interpretive Data Fasting glucose >/= 126 mg/dl is diagnostic for diabetes. Fasting is defined as no caloric intake for at least 8 hours. Fasting glucose between 100 mg/dl to 125 mg/dl is diagnostic of prediabetes. In a patient with classic symptoms of hyperglycemia or hyperglycemic crisis, a random glucose >/= 200 mg/dl is diagnostic for diabetes. In the absence of unequivocal hyperglycemia, results should be confirmed by repeat testing. The classification and Diagnosis of Diabetes Diabetes Care 2021; 46: S19-S40. Current interpretive data was last revised 2022. Calcium 9.1 8.5 - 10.3 mg/dL [facility] Bilirubin, total 0.3 0.1 - 1.2 mg/dL [facility] Protein, pl 6.5 6.5 - 8.5 g/dL [facility] Albumin 4.1 3.5 - 5.0 g/dL [facility] Alk phos 118 40 - 130 Units/L [facility] ALT 24 7 - 45 Units/L [facility] AST 17 10 - 45 Units/L [facility] Blood 09/17/2024 12:5 4 PM CDT 09/17/2024 1:04 PM CDT [facility] Pawel Cunningham MD LAB BLOOD ORDERABLES Yasmeen l Result [facility] [place] [address] * Signatera Only Draw 3 (09/17/2024 12:40 PM CDT) SIGNATERA TEST RESULT NEGATIVE 6:33 PM CDT [facility] SIGNATERA MTM READOUT 0 MTM/ml 6:33 PM CDT [facility] Comment: Please see the attached PDF for more information. Limitations Signatera is a personalized, tumor-informed test for the longitudinal detection of circulating tumor DNA (ctDNA). Interval testing is recommended for all patients. Studies have demonstrated that when ctDNA is detected (Signatera Positive) following surgery or definitive treatment, the risk for disease relapse is high without further treatment. Conversely, when ctDNA is not detected, the patient may be considered at lower risk for relapse. For those with multiple timepoints, upward trending ctDNA levels are suggestive of increasing tumor burden (1,2). For a single time point in isolation, the absolute MTM/mL value has no known clinical significance and should not be compared across patients. Test results should be interpreted in context of other clinicopathological features. ctDNA detection sensitivity may be limited due to blood collection within two weeks of surgery and while the patient is on therapy. Signatera is a quantitative test and reports in units of mean tumor molecules per ml (MTM/mL), which is comprised of three measured components (plasma volume, cell free DNA (cfDNA) concentration, and Variant Allele Frequency (VAF)). The MTM/mL number will be qualified if any measured component falls outside the analytical measurement range for that component. The analytical sensitivity is 95% at the limit of detection (0.3 MTM/mL). Results obtained are specific to the assessed time point. A negative test result does not definitively indicate the absence of cancer. This test is not designed to detect or report germline variation, nor does it infer hereditary cancer risk for the patient. Each Signatera assay is designed to a single tumor for a given patient. At this time, multiple personalized Signatera assays cannot be developed for the same patient. This test is designed to detect ctDNA from the assayed tumor only; new primary tumors will not be detected. There is a low risk that a new primary may share a variant that could interfere with the Signatera test. Testing cannot be performed in patients who are , have a history of bone marrow transplant, or history of blood transfusion within three months. This test is expected to have limited sensitivity in cancer types such as GIST, renal cell carcinomas, primary brain tumors, and lymphoma due to limited ctDNA shed. 1 Sen SV, Reji WAREC, Bayron EDDY, et al. Personalized circulating tumor DNA analysis as a predictive biomarker in solid tumor patients treated with pembrolizumab. Nature Cancer. 2020;1(9):873-881. 2 Yogesh CARRILLO, Shayla N, et al., Circulating Tumor DNA in Stage III Colorectal Cancer, beyond Minimal Residual Disease Detection, toward Assessment of Adjuvant Therapy Efficacy and Clinical Behavior of Recurrences. Clin Cancer Res. 2020; 28(3):507-517. Methodology FFPE samples are reviewed by a pathologist to assess tumor content and percent tumor nuclei. Tumor DNA is extracted using [employer] Mag-Bind FFPE DNA/RNA kit. Whole genomic DNA is isolated from peripheral blood using [employer] DNA Blood MiniKit to provide DNA for germline sequencing. Circulating tumor DNA (ctDNA) is extracted from plasma derived from whole blood samples collected in cell-free DNA blood tubes ([employer]) using the QIALimeadeny automated or manual extraction method (Qiagen). Whole-exome sequencing is performed on tumor and peripheral blood DNA using the comScore whole-exome sequencing assay. Using a proprietary algorithm, putative, clonal variants present in the tumor but absent in the germline DNA are identified to design the customized multiplex PCR assay. The customized PCR assays are run to detect presence or absence of these variants within circulating plasma. A patient's plasma sample is considered ctDNA positive when at least two individual-specific tumor variants are detected. When fewer than two individual-specific tumor variants are observed, a negative result is issued. Pathology services and whole exome sequencing is performed at [email or web address] (CLIA ID# [id number]), [facility] [place] . [address] Disclaimer The extraction, library preparation, and sequencing for this test were performed by [employer] [address] [place] [address] A [facility] [address], [place] [address] (CLIA ID [id number]). The data analysis and reporting for this test were performed by [email or web address] [address] [facility], [place] [address] (CLIA ID [id number]). This test was developed and its performance characteristics determined by [email or web address]. The test has not been cleared or approved by the U.S. Food and Drug Administration (FDA). CAP accredited, ISO 51144 certified, and CLIA certified. Pathology services and whole exome sequencing for this test were performed by [email or web address] [address], [place] [address] (CLIA ID [id number]). 2020 [employer]. All Rights Reserved. Blood specimen (specimen) (Blood, arterial) 09/17/2024 12:40 PM CDT 09/18/2024 2:00 AM CDT [facility] MD LAB GENETIC TESTING Final Result [facility] [address] [place] [address], [facility] * CT Chest Abdomen Pelvis W Contrast (09/17/2024 12:20 PM CDT) Anatomical Region Laterality Modality Body N/A Computed Tomogra phy 09/17/2024 1:30 PM CDT Impressions 09/17/2024 1:30 PM CDT No evidence of recurrent or metastatic disease. Electronically signed by: Rubens Guerra M.D. Narrative 09/17/2024 1:30 PM CDT EXAMINATION: Computed tomography of the chest, abdomen and pelvis with intravenous contrast HISTORY: Gastric adenocarcinoma TECHNIQUE: Transaxial computed tomographic images of the chest, abdomen and pelvis were obtained with intravenous contrast according to the standard protocol after the uneventful administration of 69 mL Opti-Ray 350 intravenous contrast. COMPARISON: 03/07/2024 FINDINGS: Right internal jugular Port-A-Cath has tip in the right atrium. No supraclavicular, axillary, mediastinal, or hilar lymphadenopathy. Heart size is normal. There is some mild coronary calcifications. No suspicious pulmonary nodules or masses. No consolidation, effusion, or pneumothorax. No intrahepatic lesions or biliary ductal dilatation. Gallbladder is surgically absent. Portal and superior mesenteric veins are normal. Spleen is normal. Pancreas is normal. No adrenal lesions. No renal lesions or hydronephrosis. There are changes of partial gastrectomy and gastrojejunostomy. No abdominal or pelvic lymphadenopathy. The bowel is normal in caliber without evidence of any focal wall thickening or obstruction. No omental or mesenteric lesions. Bone windows demonstrate no lytic or blastic lesions. Procedure Note Rubens Guerra MD - 09/17/2024 EXAMINATION: Computed tomography of the chest, abdomen and pelvis with intravenous contrast HISTORY: Gastric adenocarcinoma TECHNIQUE: Transaxial computed tomographic images of the chest, abdomen and pelvis were obtained with intravenous contrast according to the standard protocol after the uneventful administration of 69 mL Opti-Ray 350 intravenous contrast. COMPARISON: 03/07/2024 FINDINGS: Right internal jugular Port-A-Cath has tip in the right atrium. No supraclavicular, axillary, mediastinal, or hilar lymphadenopathy. Heart size is normal. There is some mild coronary calcifications. No suspicious pulmonary nodules or masses. No consolidation, effusion, or pneumothorax. No intrahepatic lesions or biliary ductal dilatation. Gallbladder is surgically absent. Portal and superior mesenteric veins are normal. Spleen is normal. Pancreas is normal. No adrenal lesions. No renal lesions or hydronephrosis. There are changes of partial gastrectomy and gastrojejunostomy. No abdominal or pelvic lymphadenopathy. The bowel is normal in caliber without evidence of any focal wall thickening or obstruction. No omental or mesenteric lesions. Bone windows demonstrate no lytic or blastic lesions. IMPRESSION: No evidence of recurrent or metastatic disease. Electronically signed by: Rubens Guerra M.D. [facility] IM CT PROCEDURES Final R esult * SCAN - PATHOLOGY (09/17/2024) us Provider Scanning Final Result * (ABNORMAL) Lipid panel (06/30/2023 12:41 PM CDT) Cholesterol 132 30 - 199 mg/dL Comment: Interpretive Data Ages < or = 19 years Acceptable: <170 mg/dL Borderline high: 170-199 mg/dL High: >or= 200 mg/dL Ages > or = 20 years Desirable: <200 mg/dL Borderline high: 200-239 mg/dL High: >or= 240 mg/dL Literature References: 1. Expert Panel on Integrated Guidelines for Cardiovascular Health and Risk Reduction in Children and Adolescents. Pediatrics 2011;128:S213 2. NCEP Expert Panel. Circulation 2004;110:227 Current Interpretive Data was last revised on 2017. Triglycerides 157(H) <=149 mg/dL MIG[facility]ALIA VARGAS Comment: Interpretive Data Ages < or = 9 years Acceptable: <75 mg/dL Borderline high: 75-99 mg/dL High: >or= 100 mg/dL Ages 10 to 20 years Acceptable: <90 mg/dL Borderline high: 90-129 mg/dL High: >or= 130 mg/dL Ages > or = 20 years Desirable: <150 mg/dL Borderline high: 150-199 mg/dL High: 200-499 mg/dL Very high: >or= 499 mg/dL Literature References: 1. Expert Panel on Integrated Guidelines for Cardiovascular Health and Risk Reduction in Children and Adolescents. Pediatrics 2011;128:S213 2. NCEP Expert Panel. Circulation 2004;110:227 Current Interpretive Data was last revised on 2017. HDL 41 >=40 mg/dL MIGDALIA VARGAS Comment: Interpretive Data Ages < or = 19 years Acceptable: >45 mg/dL Borderline low: 40-45 mg/dL Low: <40 mg/dL Ages > or = 20 years Desirable: >or= 60 mg/dL Low: <40 mg/dL Literature References: 1. Expert Panel on Integrated Guidelines for Cardiovascular Health and Risk Reduction in Children and Adolescents. Pediatrics 2011;128:S213 2. NCEP Expert Panel. Circulation 2004;110:227 Current Interpretive Data was last revised on 2017. LDL, calculated 60 <=129 mg/dL MIGDALIA VARGAS Comment: Interpretive Data Ages < or = 19 years Acceptable: <110 mg/dL Borderline high: 110-129 mg/dL High: >or= 130 mg/dL Ages > or = 20 years Optimal: <100 mg/dL Near optimal: 100-129 mg/dL Borderline high: 130-159 mg/dL High: >160 mg/dL Literature References: 1. Expert Panel on Integrated Guidelines for Cardiovascular Health and Risk Reduction in Children and Adolescents. Pediatrics 2011;128:S213 2. NCEP Expert Panel. Circulation 2004;110:227 Current Interpretive Data was last revised on 2017. Non-HDL Cholesterol 91 mg/dL MIGDALIA VARGAS Comment: Interpretive Data Ages < or = 19 years Acceptable: <120 mg/dL Borderline high: 120-144 mg/dL High: >145 mg/dL Ages > or = 20 years When triglycerides are >200 mg/dL, Non-HDL cholesterol is a secondary target of therapy with treatment goals that are 30 mg/dL greater than the LDL cholesterol target. Literature References: 1. Expert Panel on Integrated Guidelines for Cardiovascular Health and Risk Reduction in Children and Adolescents. Pediatrics 2011;128:S213 2. NCEP Expert Panel. Circulation 2004;110:227 Current Interpretive Data was last revised on 2017. Chol/HDL ratio 3 MIGDALIA MURPHYCH Blood 06/30/2023 12:4 1 PM CDT 06/30/2023 1:38 PM CDT Wyatt Aguirre MD LAB BLOOD ORDERABLES Final Res ult [facility] [address] [facility] [address] * (ABNORMAL) Hemoglobin A1c (10/25/2022 9:39 AM CDT) Hgb A1C 7.4(H) 4.0 - 5.6 % [facility] Estimated Average Glucose 166 mg/dL [facility] Comment: The ADA recommends reporting an estimated Average Glucose (eAG) with all Hemoglobin A1c results using the equation derived from a study of 507 normal and diabetic adults. Minority populations were underrepresented and children were not included. (Diabetes Care 2020; 43(S1): S66-S76). The eAG is not equivalent to a fasting glucose. Blood 10/25/2022 9:39 AM CDT 10/25/2022 10:14 AM CDT us Arvind Montemayor MD LAB BLOOD ORDERABLES Yasmeen casillas Result [facility] [place] [address] from Last 3 Months or Most Recently Relevant to Health Maintenance Insurance MEDICARE [facility] Address: [address] [address] [place] [address] [facility] MEDICARE ADVANTAGE [facility] MEDICARE ADVANTAGE Advance Directives For more information, please contact: [phone] Documents on File Type Date Recorded Patient Referral Agent Expl anation ADVANCE DIRECTIVE 01/25/2023 9:19 AM Val ng Will * Full Code (Latest Code Status on File) Date Activated Date Inactivated Comments 10/11/2023 7:36 AM 10/11/2023 1:26 PM * Full Code Date Activated Date Inactivated Comments 01/25/2023 5:22 PM 01/31/2023 5:06 PM * Full Code Date Activated Date Inactivated Comments 09/29/2022 7:38 AM 09/29/2022 1:07 PM Care Teams Supervisor Burling And Joining Relationship Specialty Start Date End Date Arvind Montemayor MD [address] [address] PCP - General Family Medicine 09/14/20 Andre Cunningham MD [address] [place] [address] Medical Oncologist Medical Oncology 10/05/22 Berta Garcia MD [address] [place] [address] Consulting Physician Gastroenterology 10/05/22
--- OUTSIDE RECORDS SUMMARY | 2024-12-12 19:25 | XMS_ITS | Encounter Summary ---
Author Organization [facility] Address [address] [place] [address] Phone Care Team Providers Care Packager Machine Name Role Phone Arvind Montemayor MD Primary Care Provider [phone] Andre Cunningham MD Unavailable EarlyBerta MD Unavailable [phone] Amanda Hare Unavailable Unavailable Encounter Details Date Type Department Care Team (Latest Contact Info) Description 10/15/2020 Orders Only [facility] Scanning, Provider Social History Tobacco Use Types Packs/Day Years Used Date Smoking Tobacco: Never Smokeless Tobacco: Never Comments Unknown Sex and Gender Information Value Date Recorded Sex Assigned at Not on file Legal Sex Female 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 Gender Identity Female 09/15/2022 2:56 PM CDT Sexual Orientation Not on file documented as of this encounter Plan of Treatment Not on file documented as of this encounter Procedures Procedure Name Priority Date/Time Associated Diagnosis Comments SCAN - RADIOLOGY/IMAGING 10/15/2020 documented in this encounter Results * SCAN - RADIOLOGY/IMAGING (10/15/2020) Anatomical Region Laterality Modality Other us Provider Scanning Final Result documented in this encounter Visit Diagnoses Not on filedocumented in this encounter Care Teams Packager Machine Relationship Specialty Start Date End Date Arvind Montemayor MD [address] [address] PCP - General Family Medicine 09/14/20 Andre Cunningham MD [address] [place] [address] Medical Oncologist Medical Oncology 10/05/22 Berta Garcia MD [address] [place], [place] [id number] Consulting Physician Gastroenterology 10/05/22 Amanda Hare RMA Surgical Prehabilitation and Readiness (SPAR) Coordinator 01/09/23 01/09/23 documented as of this encounter
--- OUTSIDE RECORDS SUMMARY | 2024-12-12 19:25 | XMS_ITS | Encounter Summary ---
Author Organization [facility] Address [address] [place] [address] Phone Care Team Providers Care Administrative Support Coordinator Name Role Phone Arvind Montemayor MD Primary Care Provider [phone] Andre Cunningham MD Unavailable [phone] EarlyBerta MD Unavailable [phone] Encounter Details Date Type Department Care Team (Latest Contact Info) Description 09/05/2023 Orders Only [facility] Scanning, Provider Social History Tobacco Use Types Packs/Day Years Used Date Smoking Tobacco: Never Smokeless Tobacco: Never AUDIT-C Answer Date Recorded Q1: How often do you have a drink containing alcohol? Never 02/13/2023 Q2: How many drinks containi ng alcohol do you have on a typical day when you are drinking? Patient does not drink Q3: How often do you have si x or more drinks on one occasion? Never 02/13/2023 Personal Safety Answer Date Recorded Have you ever been in or are you currently in a harmful physical or emotional relationship or is someone making you feel afraid or unsafe? 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 Gender Identity Female 09/15/2022 2:56 PM CDT Sexual Orientation Not on file documented as of this encounter Plan of Treatment Not on file documented as of this encounter Procedures Procedure Name Priority Date/Time Associated Diagnosis Comments SCAN - PATHOLOGY 09/05/2023 documented in this encounter Results * SCAN - PATHOLOGY (09/05/2023) us Provider Scanning Edited Result - Final documented in this encounter Visit Diagnoses Not on filedocumented in this encounter Care Teams Administrative Support Coordinator Relationship Specialty Start Date End Date Arvind Montemayor MD [address] [address] PCP - General Family Medicine 09/14/20 Andre Cunningham MD [address] [place] [address] Medical Oncologist Medical Oncology 10/05/22 Berta Garcia MD [address] [place] [address] Consulting Physician Gastroenterology 10/05/22 documented as of this encounter
--- OUTSIDE RECORDS SUMMARY | 2024-12-12 19:25 | XMS_ITS | Encounter Summary ---
Author Organization [facility] Address [address] [place] [address] Phone Care Team Providers Care Express Clerk Name Role Phone Arvind Montemayor MD Primary Care Provider [phone] Andre Cunningham MD Unavailable EarlyBerta MD Unavailable [phone] Amanda Hare Unavailable Unavailable Encounter Details Date Type Department Care Team (Latest Contact Info) Description 08/24/2022 Orders Only [facility] Scanning, Provider Social History Tobacco Use Types Packs/Day Years Used Date Smoking Tobacco: Never Smokeless Tobacco: Never Comments Unknown Sex and Gender Information Value Date Recorded Sex Assigned at Not on file 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 Gender Identity Female 09/15/2022 2:56 PM CDT Sexual Orientation Not on file documented as of this encounter Plan of Treatment Not on file documented as of this encounter Procedures Procedure Name Priority Date/Time Associated Diagnosis Comments SCAN - RADIOLOGY/IMAGING 08/24/2022 documented in this encounter Results * SCAN - RADIOLOGY/IMAGING (08/24/2022) Anatomical Region Laterality Modality Other us Provider Scanning Edited Result - Final documented in this encounter Visit Diagnoses Not on filedocumented in this encounter Care Teams Express Clerk Relationship Specialty Start Date End Date Arvind Montemayor MD [address] [address] PCP - General Family Medicine 09/14/20 Andre Cunningham MD [address] [place] [address] Medical Oncologist Medical Oncology 10/05/22 Berta Garcia MD [address] [place], [place] [id number] Consulting Physician Gastroenterology 10/05/22 Amanda Hare RMA Surgical Prehabilitation and Readiness (SPAR) Coordinator 01/09/23 01/09/23 documented as of this encounter
--- OUTSIDE RECORDS SUMMARY | 2024-12-12 19:25 | XMS_ITS | Encounter Summary ---
Author Organization [facility] Address [address] [place] [address] Phone Care Team Providers Care Sanitary Engineer Name Role Phone Arvind Montemayor MD Primary Care Provider [phone] Andre Cunningham MD Unavailable [phone] Early, Berta Ponce MD Unavailable [phone] Encounter Details Date Type Department Care Team (Late st Contact Info) Description 05/03/2023 Telephone [facility] Medicine Oncology [address] [facility] [address] [place] [id number] Kim Alberto., B.A. 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 Gender Identity Female 09/15/2022 2:56 PM CDT Sexual Orientation Not on file documented as of this encounter Plan of Treatment Not on file documented as of this encounter Visit Diagnoses Not on filedocumented in this encounter Care Teams Sanitary Engineer Relationship Specialty Start Date End Date Arvind Montemayor MD [address] [address] PCP - General Family Medicine 09/14/20 Andre Cunningham MD [address] [place] [address] Medical Oncologist Medical Oncology 10/05/22 Berta Garcia MD [address] [place], [place] [id number] Consulting Physician Gastroenterology 10/05/22 documented as of this encounter
--- OUTSIDE RECORDS SUMMARY | 2024-12-12 19:25 | XMS_ITS | Encounter Summary ---
Author Organization [facility] Address [address] [place] [address] Phone Care Team Providers Care Assessment Director Name Role Phone Arvind Montemayor MD Primary Care Provider [phone] Andre Cunningham MD Unavailable [phone] Early, Berta Ponce MD Unavailable [phone] Encounter Details Date Type Department Care Team (Latest Contact Info) Description 05/06/2024 Orders Only [facility] Scanning, Provider Social History Tobacco Use Types Packs/Day Years Used Date Smoking Tobacco: Never Passive Smoke Exposure: Never Smokeless Tobacco: Never AUDIT-C Answer Date [...] on file Legal Sex Female 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 Gender Identity Female 09/15/2022 2:56 PM CDT Sexual Orientation Not on file documented as of this encounter Plan of Treatment Not on file documented as of this encounter Procedures Procedure Name Priority Date/Time Associated Diagnosis Comments SCAN - RADIOLOGY/IMAGING 05/06/2024 documented in this encounter Results * SCAN - RADIOLOGY/IMAGING (05/06/2024) Anatomical Region Laterality Modality Other us Provider Scanning Edited Result - Final documented in this encounter Visit Diagnoses Not on filedocumented in this encounter Care Teams Assessment Director Relationship Specialty Start Date End Date Arvind Montemayor MD [address] [address] PCP - General Family Medicine 09/14/20 Andre Cunningham MD [address] [place] [address] Medical Oncologist Medical Oncology 10/05/22 Berta Garcia MD [address] [place] [address] Consulting Physician Gastroenterology 10/05/22 documented as of this encounter
--- OUTSIDE RECORDS SUMMARY | 2024-12-12 19:25 | XMS_ITS | Encounter Summary ---
Author Organization [facility] Address [address] [place] [address] Phone Care Team Providers Care Catalogue Clerk Name Role Phone Arvind Montemayor MD Primary Care Provider [phone] Andre Cunningham MD Unavailable Berta Garcia MD Unavailable [phone] Amanda Hare Unavailable Unavailable Encounter Details Date Type Department Care Team (Latest Contact Info) Description 12/23/2020 Orders Only [facility] Scanning, Provider Social History Tobacco Use Types Packs/Day Years Used Date Smoking Tobacco: Never Smokeless Tobacco: Never Comments Unknown Sex and Gender Information Value Date Recorded Sex Assigned at Not on file Legal Sex Female 7:17 AM TECHNICAL ASSOC Gender Identity Female 09/15/2022 2:56 PM CDT Sexual Orientation Not on file documented as of this encounter Plan of Treatment Not on file documented as of this encounter Procedures Procedure Name Priority Date/Time Associated Diagnosis Comments SCAN - PATHOLOGY 12/23/2020 documented in this encounter Results * SCAN - PATHOLOGY (12/23/2020) us Provider Scanning Final Result documented in this encounter Visit Diagnoses Not on filedocumented in this encounter Care Teams Catalogue Clerk Relationship Specialty Start Date End Date Arvind Montemayor MD [address] [address] PCP - General Family Medicine 09/14/20 Andre Cunningham MD [address] [place] [address] Medical Oncologist Medical Oncology 10/05/22 Berta Garcia MD [address] [place] [address] Consulting Physician Gastroenterology 10/05/22 Amanda Hare RMA Surgical Prehabilitation and Readiness (SPAR) Coordinator 01/09/23 01/09/23 documented as of this encounter
--- OUTSIDE RECORDS SUMMARY | 2024-12-12 19:25 | XMS_ITS | Encounter Summary ---
Author Organization 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 Gender Identity Female 09/15/2022 2:56 PM CDT Sexual Orientation Not on file documented as of this encounter Functional Status documented as of this encounter Plan of Treatment Not on file documented as of this encounter Procedures Procedure Name Priority Date/Time Associated Diagnosis Comments SCAN - PATHOLOGY 03/12/2024 documented in this encounter Results * SCAN - PATHOLOGY (03/12/2024) Result [facility] Provider Scanning Final Result documented in this encounter Visit Diagnoses Not on filedocumented in this encounter Care Teams Product Technician Relationship Specialty Start Date End Date Arvind Montemayor MD [address] [address] PCP - General Family Medicine 09/14/20 Andre Cunningham MD [address] [place] [address] Medical Oncologist Medical Oncology 10/05/22 Berta Garcia MD [address] [place] [address] Consulting Physician Gastroenterology 10/05/22 documented as of this encounter
--- OUTSIDE RECORDS SUMMARY | 2024-12-12 19:25 | XMS_ITS | Encounter Summary ---
Author Organization [facility] Address [address] [place] [address] Phone Care Team Providers Care Component Assembler Name Role Phone Arvind Montemayor MD Primary Care Provider [phone] Andre Cunningham MD Unavailable [phone] EarlyBerta MD Unavailable [phone] Amanda Hare Unavailable Unavailable Encounter Details Date Type Department Care Team (Latest Contact Info) Description 09/01/2022 Orders Only [facility] Scanning, Provider Social History Tobacco Use Types Packs/Day Years Used Date Smoking Tobacco: Never Smokeless Tobacco: Never Comments Unknown Sex and Gender Information Value Date Recorded Sex Assigned at Not on file 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 Gender Identity Female 09/15/2022 2:56 PM CDT Sexual Orientation Not on file documented as of this encounter Plan of Treatment Not on file documented as of this encounter Procedures Procedure Name Priority Date/Time Associated Diagnosis Comments GI - RESULT 09/01/2022 documented in this encounter Results * GI - RESULT (09/01/2022) Anatomical Region Laterality Modality Other us Provider Scanning Final Result documented in this encounter Visit Diagnoses Not on filedocumented in this encounter Care Teams Component Assembler Relationship Specialty Start Date End Date Arvind Montemayor MD [address] [address] PCP - General Family Medicine 09/14/20 Andre Cunningham MD [address] [place] [address] Medical Oncologist Medical Oncology 10/05/22 Berta Garcia MD [address] [place], [place] [id number] Consulting Physician Gastroenterology 10/05/22 Amanda Hare RMA Surgical Prehabilitation and Readiness (SPAR) Coordinator 01/09/23 01/09/23 documented as of this encounter
--- OUTSIDE RECORDS SUMMARY | 2024-12-12 19:25 | XMS_ITS | Encounter Summary ---
Author Organization [facility] Address [address] [place] [address] Care Team Providers Care General Activities Therapist Name Role Phone Arvind Montemayor MD Primary Care Provider [phone] Encounter Details Date Type Department Care Team (Late st Contact Info) Description 08/15/2024 Lab Requisition [facility] - DermPath Lab [address] [facility], [place] [id number] Cris Shine DO [address] [facility] 3 [place] [address] Social History Tobacco Use Types Packs/Day Years Used Date Smoking Tobacco: Never Assessed Comments Unknown Sex and Gender Information Value Date Recorded Sex Assigned at Not on file 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 Gender Identity Not on file Sexual Orientation Not on file documented as of this encounter Plan of Treatment Not on file documented as of this encounter Procedures Procedure Name Priority Date/Time Associated Diagnosis Comments DERMATOPATHOLOGY Routine 08/15/2024 1:21 PM CDT documented in this encounter Results * DERMATOPATHOLOGY (08/15/2024 1:21 PM CDT) Case Report Dermatopathology Report Case: [id number] Authorizing Provider: Cris Shine DO Collected: 08/15/2024 01:21 PM Ordering Location: [facility] - Received: 08/16/2024 08:42 AM DermPath Lab Pathologist: Evelyn Travis MD Specimen: Skin, left chest 4:33 PM CDT DERMATOPATHOLOGY LABORATORY Final Diagnosis Specimen A. SKIN, left chest: BASAL CELL CARCINOMA (C44.519) NOT PRESENT AT MARGIN DERMAL SCAR (L90.5) 4:33 PM CDT DERMATOPATHOLOGY LABORATORY at 1633 CDT Clinical History Bx Proven BCC Check margins/prior biopsy 4:33 PM CDT DERMATOPATHOLOGY LABORATORY Gross Description Specimen A: Received is one formalin filled container labeled with the patient's name and designated left chest. The specimen consists of a non-oriented ellipse of skin measuring 80c68m6 mm. The epidermal surface is unremarkable. The margin is inked green. The 12 o'clock and 6 o'clock tips are submitted in cassette 1. The remainder of the ellipse is serially sectioned and submitted in cassette 2-3. Jar 0. 4:33 PM CDT DERMATOPATHOLOGY LABORATORY Microscopic Description Specimen A. SKIN, left chest: Within the dermis there are aggregates of basaloid cells with a high nuclear to cytoplasmic ratio and peripheral palisading. This lesion is not present at the margin of the specimen. There are fibroblasts and collagen bundles oriented parallel to the skin surface with elongated blood vessels, some of which are oriented perpendicular to the skin surface. 4:33 PM CDT DERMATOPATHOLOGY LABORATORY Disclaimer An external and internal positive and negative controls are appropriate for the histochemical, immunohistochemical and immunofluorescence stain(s) in this case (if any), except where stated explicitly. The performance characteristics of the stain(s) cited in this report were developed and its performance characteristic determined by the Dermatopathology Laboratory at [facility], directed by Dr. Lona Mancia. These tests need not be, and therefore are not, approved by the [place] Food and Drug Administration. The tests are used for clinical purposes. Billing Codes Specimen Charges Stain Charges 96703 1 4:33 PM CDT DERMATOPATHOLOGY LABORATORY Embedded Images 4:33 PM CDT DERMATOPATHOLOGY LABORATORY Pathology/Cytolo gy TISSUE SPECIMEN FROM SKIN / Unknown 08/15/2024 1:21 PM CDT 08/16/2024 8:42 AM CDT us Cris Shine DO LAB - PATHOLOGY/CYTOLOGY ORDERABLES Final Result DERMATOPATHOLOGY LABORATORY [facility] - Department of Dermatology [facility] [address] [place] [address], [address] [place] [address], [facility] [phone] documented in this encounter Visit Diagnoses Not on filedocumented in this encounter Care Teams General Activities Therapist Relationship Specialty Start Date End Date Arvind Montemayor MD [address] [place] [address] PCP - General 12/25/20 documented as of this encounter
--- OUTSIDE RECORDS SUMMARY | 2024-12-12 19:25 | XMS_ITS | Encounter Summary ---
Author Organization [facility] Address [address] [facility] [place] [address] Care Team Providers Care System Support Technician Name Role Phone Arvind Montemayor MD Primary Care Provider [phone] Encounter Details Date Type Department Care Team (Late st Contact Info) Description 07/15/2024 Lab Requisition [facility] - DermPath Lab [address] [facility], [facility] [place] [phone] Monik Mallory MD [address] [facility] 3 [place] [address] Social History Tobacco Use Types Packs/Day Years Used Date Smoking Tobacco: Never Assessed Comments Unknown Sex and Gender Information Value Date Recorded Sex Assigned at Not on file 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 Gender Identity Not on file Sexual Orientation Not on file documented as of this encounter Plan of Treatment Not on file documented as of this encounter Procedures Procedure Name Priority Date/Time Associated Diagnosis Comments DERMATOPATHOLOGY Routine 07/15/2024 11:5 4 AM CDT documented in this encounter Results * DERMATOPATHOLOGY (07/15/2024 11:54 AM CDT) Case Report Dermatopathology Report Case: [id number] Authorizing Provider: Monik Mallory MD Collected: 07/15/2024 11:54 AM Ordering Location: [facility] - Received: 07/16/2024 07:03 AM DermPath Lab Pathologist: Jessi Smart MD Specimen: Skin, left chest 12:48 PM CDT DERMATOPATHOLOGY LABORATORY Final Diagnosis Specimen A. SKIN, left chest: BASAL CELL CARCINOMA, SUPERFICIAL MULTIFOCAL (C44.519) 12:48 PM CDT DERMATOPATHOLOGY LABORATORY at 1248 CDT Clinical History R/O SK vs SCC; Growing, Non-Healing 12:48 PM CDT DERMATOPATHOLOGY LABORATORY Gross Description Specimen A: Received is one formalin filled container labeled with the patient's name and designated left chest. The specimen consists of a shave biopsy measuring 9x6x2 mm. Jar 0. 12:48 PM CDT DERMATOPATHOLOGY LABORATORY Microscopic Description Specimen A. SKIN, left chest: Attached to the undersurface of the epidermis, there are small aggregates of basaloid cells with a high nuclear to cytoplasmic ratio and peripheral palisading. 12:48 PM CDT DERMATOPATHOLOGY LABORATORY Disclaimer An external and internal positive and negative controls are appropriate for the histochemical, immunohistochemical and immunofluorescence stain(s) in this case (if any), except where stated explicitly. The performance characteristics of the stain(s) cited in this report were developed and its performance characteristic determined by the Dermatopathology Laboratory at [facility], directed by Dr. Lona Mancia. These tests need not be, and therefore are not, approved by the [place] Food and Drug Administration. The tests are used for clinical purposes. Billing Codes Specimen Charges Stain Charges 46133 1 12:48 PM CDT DERMATOPATHOLOGY LABORATORY Embedded Images 12:48 PM CDT DERMATOPATHOLOGY LABORATORY Pathology/Cytolo gy TISSUE SPECIMEN FROM SKIN / Unknown 07/15/2024 11:54 AM CDT 07/16/2024 7:03 AM CDT Monik Mallory MD LAB - PATHOLOGY/CYTOLOGY OR DERABLES Final Result DERMATOPATHOLOGY LABORATORY [facility] - Department of Dermatology [facility] [address] [place] [address], 3rd [place], [place] [address] [place] [address] documented in this encounter Visit Diagnoses Not on filedocumented in this encounter Care Teams System Support Technician Relationship Specialty Start Date End Date Arvind Montemayor MD [address] [facility] [address] [place] [address] PCP - General 12/25/20 documented as of this encounter
--- OUTSIDE RECORDS SUMMARY | 2024-12-12 19:25 | XMS_ITS | Encounter Summary ---
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 Gender Identity Female 09/15/2022 2:56 PM CDT Sexual Orientation Not on file documented as of this encounter Functional Status documented as of this encounter Plan of Treatment Not on file documented as of this encounter Procedures Procedure Name Priority Date/Time Associated Diagnosis Comments SCAN - PATHOLOGY 12/12/2023 documented in this encounter Results * SCAN - PATHOLOGY (12/12/2023) Provider Scanning Edited Result - Final documented in this encounter Visit Diagnoses Not on filedocumented in this encounter Care Teams Coat Checker Relationship Specialty Start Date End Date Arvind Montemayor MD [address] [address] PCP - General Family Medicine 09/14/20 Andre Cunningham MD [address] [place] [address] Medical Oncologist Medical Oncology 10/05/22 Berta Garcia MD [address] [place] [address] Consulting Physician Gastroenterology 10/05/22 documented as of this encounter
--- OUTSIDE RECORDS SUMMARY | 2024-12-12 19:25 | XMS_ITS | Encounter Summary ---
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 Gender Identity Female 09/15/2022 2:56 PM CDT Sexual Orientation Not on file documented as of this encounter Functional Status documented as of this encounter Plan of Treatment Not on file documented as of this encounter Procedures Procedure Name Priority Date/Time Associated Diagnosis Comments SCAN - PATHOLOGY 09/12/2023 documented in this encounter Results * SCAN - PATHOLOGY (09/12/2023) us Provider Scanning Edited Result - Final documented in this encounter Visit Diagnoses Not on filedocumented in this encounter Care Teams Congregational Care Pastor Relationship Specialty Start Date End Date Arvind Montemayor MD [address] [address] PCP - General Family Medicine 09/14/20 Andre Cunningham MD [address] [place] [address] Medical Oncologist Medical Oncology 10/05/22 Berta Garcia MD [address] [place] [address] Consulting Physician Gastroenterology 10/05/22 documented as of this encounter
--- OUTSIDE RECORDS SUMMARY | 2024-12-12 19:25 | XMS_ITS | Clinical Summary ---
Author Organization [facility] Doeitzel Address [address] [place] [address] Care Team Providers Care Supervisor Tank Cleaning Name Role Phone Arvind Montemayor MD Primary Care Provider [phone] Allergies No known active allergies Medications atorvastatin (LIPITOR) 10 mg tablet Take 10 mg by mouth daily. 2 Active brimonidine-ti moloL (Combigan) 0.2-0.5 % solution Combigan 0.2 %-0.5 % eye drops Active flu vaccine trivalent (65 yr+)(PF)(FLUZO NE HIGH DOSE) 180 mcg/0.5 mL IM syringe Fluzone High-Dose [id number] (PF) 180 mcg/0.5 mL intramuscular syringe ADM 0.5ML IM UTD Active flu vaccine trivalent , 65 yr+,,PF, (Fluzone High-Dose , PF,) 180 mcg/0.5 mL Syringe syringe Fluzone High-Dose (PF) 180 mcg/0.5 mL intramuscular syringe ADM 0.5ML IM UTD Active glimepiride (AMARYL) 2 mg tablet TAKE 1 TABLET BY MOUTH EVERY DAY IN THE MORNING WITH BREAKFAST 2 Active levothyroxine 75 mcg tablet Take 75 mcg by mouth daily. 2 Active metFORMIN (GLUCOPHAGE XR) 500 mg Extended Release 24 hour tablet TAKE 2 TABLETS BY MOUTH TWICE A DAY 2 Active spironolactone (ALDACTONE) 50 mg tablet TAKE 3 TABLETS BY MOUTH DAILY 2 Active scopolamine (Transderm-Sco p) 1 mg/72 hr patch Transderm-Scop 1 mg over 3 days transdermal patch Active tacrolimus (PROTOPIC) 0.1 % Ointment APPLY 1 APPLICATION ONTO THE SPOTS ON THE SKIN TWICE DAILY Active ferrous sulfate (SLOW RELEASE IRON) 142 mg (45 mg iron) Tablet Sustained Release Take 142 mg by mouth. Active Cholecalcifero l, Vitamin D3, 75 mcg (3,000 unit) Tablet Take by mouth. Ac tive omega-3 fatty acids-fish oil 300-1,000 mg Capsule Take by mouth daily. Active aspirin (ECOTRIN EC) 81 mg Tablet, Delayed Release (E.C.) Take 81 mg by mouth daily. Active Active Problems Problem Noted Date Diagnosed Date Other dietary vitamin B12 deficiency anemia 08/07 Iron deficiency anemia 08/17/2021 Family History Medical History Relation Name Comments Cancer Father Heart Disease Mother Diabetes Sister 1 Cancer Son Relation Name Status Comments Brother Alive Father Mother Sister 1 Alive Sister 2 Alive Son Alive Social History Tobacco Use Types Packs/Day Years Used Date Smoking Tobacco: Never Tobacco Cessation:Counseling Given: Not Answered Alcohol Use Standard Drinks/Week Comments Never 0 (1 standard drink = 0.6 oz pur e alcohol) Comments No Sex and Gender Information Value Date Recorded Sex Assigned at Not on file Legal Sex Female 11:00 AM CDT Gender Identity Not on file Sexual Orientation Not on file Last Filed Vital Signs Vital Sign Reading Time Taken Comments Blood Pressure 117/57 07/12/2022 3:36 PM CDT Pulse 80 07/12/2022 3:36 PM CDT Temperature 36.4 C (97.6 F) 07/12/2022 3:36 PM CDT Respiratory Rate 10 07/12/2022 3:36 PM CDT Oxygen Saturation 100% 07/12/2022 3:36 PM CDT Inhaled Oxygen Concentration - - Weight 59 kg (130 lb) 07/12/2022 3:36 PM CDT Height 162.6 cm (5' 4) 10/13/2021 9:04 AM CDT Body Mass Index 22.31 10/13/2021 9:04 AM CDT Plan of Treatment Health Maintenance Due Date Last Done Comments DIABETES ANNUAL FOOT EXAM 04/07/1967 DIABETES ANNUAL RETINAL EXAM 04/07/1967 DIABETES HBA1C Q 6 MONTHS 04/07/1967 DIABETES MICROALBUMIN ANNUAL SCREEN 04/07/1967 LDL CHOLESTEROL ANNUAL 04/07/1967 DTAP/TDAP/TD VACCINES (1 - Tdap) 1968 PNEUMOCOCCAL VACCINE 50+ YEARS (1 of 2 - PCV) 04/06/18 69 COLORECTAL SCREENING 1994 Colorectal Cancer Screening 1994 FIT-DNA Q 3 years 1994 FIT/FOBT Q 1 year 1994 Flex Sig/CT Colonography Q 5 years 1994 ZOSTER VACCINE (1 of 2) 04/07/1999 OSTEOPOROSIS SCREENING 2014 RSV VACCINE (60+ or ) (1 - 1-dose 75+ series) 2024 INFLUENZA VACCINE (#1) [address] [place] [id number] Care Teams Supervisor Tank Cleaning Relationship Specialty Start Date End Date Arvind Montemayor MD [address] [place] [phone] PCP - General Family Practice 08/17/21
--- OUTSIDE RECORDS SUMMARY | 2024-12-12 19:25 | XMS_ITS | Encounter Summary ---
Author Organization [facility] Address [address] [facility] [place] [address] Care Team Providers Care Clinical Veterinarian Name Role Phone Arvind Montemayor MD Primary Care Provider [phone] Encounter Details Date Type Department Care Team (Late st Contact Info) Description 03/13/2019 Lab Requisition [facility] DermPath Lab [address] 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 Gender Identity Not on file Sexual Orientation Not on file documented as of this encounter Plan of Treatment Not on file documented as of this encounter Procedures Procedure Name Priority Date/Time Associated Diagnosis Comments DERMATOPATHOLOGY Routine 03/12/2019 12:0 0 AM HUNTING AND FISHING GUIDE documented in this encounter Results * DERMATOPATHOLOGY (03/12/2019 12:00 AM HUNTING AND FISHING GUIDE) Case Report Dermatopathology Report Case: [id number] Authorizing Provider: Cris Shine DO Collected: 03/12/2019 12:00 AM Ordering Location: [facility] DermPath Lab Received: 03/13/2019 06:20 AM Pathologist: Sheryl Mancia MD Specimen: Skin, left chest 0 5:14 PM HUNTING AND FISHING GUIDE DERMATOPATHOLOGY LABORATORY Final Diagnosis Specimen A. SKIN, left chest: BASAL CELL CARCINOMA, NODULAR TYPE (C44.519) 0 5:14 PM HUNTING AND FISHING GUIDE DERMATOPATHOLOGY LABORATORY at 1714 HUNTING AND FISHING GUIDE Clinical History R/O NMSC 0 5:14 PM [facility] DERMATOPATHOLOGY LABORATORY Gross Description Specimen A: Received is one formalin filled container labeled with the patient's name and designated left chest. The specimen consists of a shave biopsy measuring 8x7x1 mm. Jar 0. 0 5:14 PM [facility] DERMATOPATHOLOGY LABORATORY Microscopic Description Specimen A. SKIN, left chest: Within the dermis there are aggregates of basaloid cells with a high nuclear to cytoplasmic ratio and peripheral palisading. 0 5:14 PM HUNTING AND FISHING GUIDE DERMATOPATHOLOGY LABORATORY Disclaimer An external and internal positive and negative controls are appropriate for the histochemical, immunohistochemical and immunofluorescence stain(s) in this case (if any), except where stated explicitly. The performance characteristics of the stain(s) cited in this report were developed and its performance characteristic determined by the Dermatopathology Laboratory at [facility], directed by Dr. Lona Mancia. These tests need not be, and therefore are not, approved by the [place] Food and Drug Administration. The tests are used for clinical purposes. Billing Codes Specimen Charges Stain Charges 34670 1 0 5:14 PM HUNTING AND FISHING GUIDE DERMATOPATHOLOGY LABORATORY Embedded Images 0 5:14 PM [facility] DERMATOPATHOLOGY LABORATORY Pathology/Cytolog y TISSUE SPECIMEN FROM SKIN / Unknown 03/12/2019 03/13/2019 6:20 AM HUNTING AND FISHING GUIDE Cris Shine DO LAB - PATHOLOGY/CYTOLOGY ORDERABLES Final Result DERMATOPATHOLOGY LABORATORY [facility] - Department of Dermatology [facility] [facility], 5th [place] [address], [facility] [phone] documented in this encounter Visit Diagnoses Not on filedocumented in this encounter Care Teams Clinical Veterinarian Relationship Specialty Start Date End Date Arvind Montemayor MD [address] [place] [address] PCP - General 12/25/20 documented as of this encounter
--- OUTSIDE RECORDS SUMMARY | 2024-12-12 19:25 | XMS_ITS | Encounter Summary ---
Author Organization [facility] Address [address] [place] [address] Phone Care Team Providers Care Client Onboarding Analyst Name Role Phone Arvind Montemayor MD Primary Care Provider [phone] Andre Cunningham MD Unavailable [phone] EarlyBerta MD Unavailable [phone] Encounter Details Date Type Department Care Team (Latest Contact Info) Description 01/25/2023 Orders Only [facility] Scanning, Provider Social History Tobacco Use Types Packs/Day Years Used Date Smoking Tobacco: Never Smokeless Tobacco: Never AUDIT-C Answer Date Recorded Q1: How often do you have a drink containing alcohol? Never 01/19/2023 Q2: How many drinks containi ng alcohol do you have on a typical day when you are drinking? Patient does not drink Q3: How often do you have si x or more drinks on one occasion? Never 01/19/2023 Personal Safety Answer Date Recorded Have you ever been in or are you currently in a harmful physical or emotional relationship or is someone making you feel afraid or unsafe? 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 Question Answer Date of Assessment Author Have you ever felt the need to Cut down on your drinking? 0 01/25/2023 6:22 PM Moriah Diaz RN Have people ever Annoyed yo u by criticizing your drinking? 0 01/25/2023 6:22 PM Moriah Diaz RN Have you ever felt bad or Guilty about your drinking? 0 01/25/2023 6:22 PM Moriah Diaz RN Have you ever had a drink first thing in the morning to steady your nerves or get rid of a hangover? 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 0 01/25/2023 6:22 PM Moriah Diaz RN CAGE SCORE: 2 or Greater = Positive 0 01/25/2023 6:22 PM Moriah Diaz RN * Difference in Last Two Wiliam Scores Answer Date of Assessment Author 0 01/28/2023 8:02 PM Td Rose RN * Question Answer Date of Assessment Author Hansen Fall Risk Score (Score >= 45 places fall precaution order) 50 01/28/2023 8:02 PM Yesenia Rose RN Prior Fall Event (Autopopulated from EMR) None found 01/28/2023 8:02 PM Cl Rose RN * Question Answer Date of Assessment Author BP Location Right arm 01/28/2023 11:58 PM Danyelle Pisano BP Method Automatic 01/28/2023 11:58 PM Danyelle Pisano MAP (mmHg) 79 01/28/2023 11:58 PM Danyelle Pisano * Fall Risk Interventions Question Answer Date of Assessment Author All Low Fall Interventions Applied Yes 01/28/2023 8:02 PM Yesenia Rose RN All Moderate Fall Interventions Applied Yes 01/28/2023 8:02 PM Yesenia Rose RN All Moderate Fall Risk Interventions EXCEPT: Gait belt at bedside;Remain with patient while toileting 01/27/2023 8:22 PM SLIP BRIDGE OPERATOR [place], Yesenia Lopez, RN All High Fall Risk Interventions Applied Yes 01/28/2023 8:02 PM Yesenia Rose, SPENSER All High Risk Interventions EXCEPT: Bed alarm;Chair alarm 01/27/2023 8:22 PM Yesenia Rose, SPENSER Additional Interventions Applied Over-bed table on non-exit side;Exit bed on strong/preferred side;Bed/chair alarm 01/28/2023 8:02 PM Yesenia Rose, SPENSER Reason For Exception(s) BMAT green 01/28/20 8:22 PM Yesenia Rose RN Reason For Exception(s) BMAT green 01/28/20 8:22 PM Yesenia Rose, SPENSER * B.M.A.T. - Bedside Mobility Assessment Tool for Nurses Question Answer Date of Assessment Author Is patient able to participate in the BMAT? Yes 01/27/2023 8:35 AM Olivia Koo RN BMAT Level Level 3 - Yellow 01/27/2023 8:35 AM Lola Baez RN * Question Answer Date of Assessment Author 1. Has the patient self-reported, presented with clinical signs of, or have a documented history of any of the following within the past 30 days? No 01/25/2023 6:22 PM Moriah Diaz RN * Self-Injurious Risk Level Answer Date of Assessment Author No risk level 01/25/2023 6:22 PM Sheryl Diaz, SPENSER * Pressure Injury Prevention Question Answer Date of Assessment Author Pressure Ulcer Prevention Interventions Keep skin clean and dry (Sensory Perception/Moisture ) 01/28/2023 8:02 PM Yesenia Rose, SPENSER 2 Nurse Skin Assessment Mayi DUEÑAS 01/26/20 5:00 PM Moriah Diaz, SPENSER Special Mattress Rotation and low air loss 01/28/2023 8:02 PM Yesenia Rose, SPENSER * Transdermal Patch Admission Assessment Question Answer Date of Assessment Author Transdermal Patch Assessment on Admission Not Present 01/25/2023 11:59 PM Piter Hurt, SPENSER * Integumentary Question Answer Date of Assessment Author Skin Color Appropriate for ethnicity 01/28/2023 8:02 PM Yesenia Rose RN Skin Condition/Temp Warm;Dry 01/28/2023 8 :02 PM Yesenia Rose, SPENSER Skin Integrity Surgical incision 01/28/2023 8:0 2 PM Yesenia Rose RN Skin Turgor Non-tenting 01/28/2023 8:02 PM Yesenia Rose RN Integumentary Additional Assessments Yes-Wiliam 01/28/2023 8:02 PM Yesenia Rose RN Integumentary (WDL) X 01/28/2023 8 :02 PM Yesenia Rose RN Skin Location abd 01/28/2023 8:02 PM Yesenia Rose RN * Wiliam Scale Question Answer Date of Assessment Author Wiliam Scale Used Wiliam 01/25/2023 3:45 PM Brandi De León RN * Question Answer Date of Assessment Author BP Location Right arm 01/28/2023 11:58 PM Danyelle Pisano BP Method Automatic 01/28/2023 11:58 PM Danyelle Pisano * Fall Risk Interventions Question Answer Date of Assessment Author All Low Fall Interventions Applied Yes 01/28/2023 8:02 PM Yesenia Rose RN All Moderate Fall Interventions Applied Yes 01/28/2023 8:02 PM Yesenia Rose RN All Moderate Fall Risk Interventions EXCEPT: Gait belt at bedside;Remain with patient while toileting 01/27/2023 8:22 PM Yesenia Rose RN All High Fall Risk Interventions Applied Yes 01/28/2023 8:02 PM Yesenia Rose RN All High Risk Interventions EXCEPT: Bed alarm;Chair alarm 01/27/2023 8:22 PM Yesenia Rose RN Additional Interventions Applied Over-bed table on non-exit side;Exit bed on strong/preferred side;Bed/chair alarm 01/28/2023 8:02 PM Yesenia Rose, SPENSER Reason For Exception(s) BMAT green 01/28/20 8:22 PM Yesenia Rose RN Reason For Exception(s) BMAT green 01/28/20 8:22 PM SLIP BRIDGE OPERATOR Yesenia Caraballo, SPENSER * ADL Screening Question Answer Date of Assessment Author Patient's Vision Adequate to Safely Complete Daily Activities Yes 01/25/2023 6:22 PM SLIP BRIDGE OPERATOR Moriah Zaman RN Patient's Judgement Adequate to Safely Complete Daily Activities Yes 01/25/2023 6:22 PM Moriah Diaz RN Patient's Memory Adequate to Safely Complete Daily Activities Yes 01/25/2023 6:22 PM SLIP BRIDGE OPERATOR Moriah Zaman RN Patient Able to Express Needs/Desires Yes 01/25/2023 6:22 PM Moriah Diaz RN Dressing Independent 01/25/2023 6:22 PM SLIP BRIDGE OPERATOR Moriah Magdaleno RN Grooming Independent 01/25/2023 6:22 PM Moriah Graff RN Feeding Independent 01/25/2023 6:22 PM SLIP BRIDGE OPERATOR Moriah Magdaleno RN Bathing Independent 01/25/2023 6:22 PM SLIP BRIDGE OPERATOR Moriah Magdaleno RN Toileting Independent 01/25/2023 6:22 PM SLIP BRIDGE OPERATOR Moriah Magdaleno RN In/Out Bed Independent 01/25/2023 6:22 PM SLIP BRIDGE OPERATOR Moriah Magdaleno RN Walks in Home Independent 01/25/2023 6:22 PM SLIP BRIDGE OPERATOR Moriah Ochoa RN Weakness of Legs Both 01/25/2023 6:22 PM SLIP BRIDGE OPERATOR Moriah Morataya RN Weakness of Arms/Hands None 01/25/2023 6:22 PM Moriah Diaz RN Hearing - Right Ear Functional 01/25/2023 6:22 PM CS T Moriah Zaman RN Hearing - Left Ear Functional 01/25/2023 6:22 PM Moriah Diaz RN Dominant hand? Right 01/25/2023 6:22 PM SLIP BRIDGE OPERATOR Moriah Philip RN Decline in ADLs in last 2 weeks? No 01/25/2023 6:22 PM Moriah Diaz RN * Therapy Consults Question Answer Date of Assessment Author PT Evaluation Needed 1 01/25/2023 6:22 PM Moriah Cox RN OT Evaluation Needed 1 01/25/2023 6:22 PM Moriah Cox RN PSYCHOLOGY INTERN Evaluation Needed 2 01/25/2023 6:22 PM Moriah Diaz RN * Assistive Devices Question Answer Date of Assessment Author Assistive Devices/DME None 01/25/2023 6:22 PM Moriah Diaz RN * Hygiene Question Answer Date of Assessment Author Linens Complete linen change 01/27/2023 11:00 AM Ela Denton, SPENSER Bath Bathed/showered with chlorhexidine (CHG) 01/27/2023 11:00 AM Ela Denton, SPENSER documented as of this encounter Mental Status * Question Answer Entry Date Author Level of Consciousness Alert;Awake 8:30 AM Moriah Diaz RN Orientation Oriented X4 (person, place, time, situation) 01/28/2023 8:30 AM Moriah Diaz RN Neuro (WDL) WDL 01/28/2023 8:02 PM Yesenia Rose RN * Question Answer Entry Date Author Neuro (WDL) X 01/25/2023 3:45 PM Brandi De León RN documented in this encounter Plan of Treatment Not on file documented as of this encounter Procedures Procedure Name Priority Date/Time Associated Diagnosis Comments SCAN - PATHOLOGY 01/25/2023 documented in this encounter Results * SCAN - PATHOLOGY (01/25/2023) us Provider Scanning Edited Result - Final documented in this encounter Visit Diagnoses Not on filedocumented in this encounter Care Teams Client Onboarding Analyst Relationship Specialty Start Date End Date Arvind Montemayor MD [address] [address] PCP - General Family Medicine 09/14/20 Andre Cunningham MD [address] [place] [address] Medical Oncologist Medical Oncology 10/05/22 Early, Berta Ponce MD [address] [place] [address] Consulting Physician Gastroenterology 10/05/22 documented as of this encounter
--- OUTSIDE RECORDS SUMMARY | 2024-12-12 19:25 | XMS_ITS | Encounter Summary ---
Author Organization [facility] Address [address] [place] [address] Phone Care Team Providers Care Electric Motor Repairing Supervisor Name Role Phone Arvind Montemayor MD Primary Care Provider [phone] Andre Cunningham MD Unavailable Berta Garcia MD Unavailable [phone] Amanda Hare Unavailable Unavailable Encounter Details Date Type Department Care Team (Latest Contact Info) Description 01/30/2022 Orders Only [facility] Scanning, Provider Social History Tobacco Use Types Packs/Day Years Used Date Smoking Tobacco: Never Smokeless Tobacco: Never Comments Unknown Sex and Gender Information Value Date Recorded Sex Assigned at Not on file 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 Gender Identity Female 09/15/2022 2:56 PM CDT Sexual Orientation Not on file documented as of this encounter Plan of Treatment Not on file documented as of this encounter Procedures Procedure Name Priority Date/Time Associated Diagnosis Comments SCAN - RADIOLOGY/IMAGING 01/30/2022 documented in this encounter Results * SCAN - RADIOLOGY/IMAGING (01/30/2022) Anatomical Region Laterality Modality Other us Provider Scanning Final Result documented in this encounter Visit Diagnoses Not on filedocumented in this encounter Care Teams Electric Motor Repairing Supervisor Relationship Specialty Start Date End Date Arvind Montemayor MD [address] [address] PCP - General Family Medicine 09/14/20 Andre Cunningham MD [address] [place] [address] Medical Oncologist Medical Oncology 10/05/22 Berta Garcia MD [address] [place], [place] [id number] Consulting Physician Gastroenterology 10/05/22 Amanda Hare RMA Surgical Prehabilitation and Readiness (SPAR) Coordinator 01/09/23 01/09/23 documented as of this encounter
--- OUTSIDE RECORDS SUMMARY | 2024-12-12 19:25 | XMS_ITS | Encounter Summary ---
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 Gender Identity Female 09/15/2022 2:56 PM CDT Sexual Orientation Not on file documented as of this encounter Functional Status documented as of this encounter Plan of Treatment Not on file documented as of this encounter Procedures Procedure Name Priority Date/Time Associated Diagnosis Comments SCAN - PATHOLOGY 09/17/2024 documented in this encounter Results * SCAN - PATHOLOGY (09/17/2024) Result [facility] Provider Scanning Final Result documented in this encounter Visit Diagnoses Not on filedocumented in this encounter Care Teams Dental Ceramist Relationship Specialty Start Date End Date Arvind Montemayor MD [address] [address] PCP - General Family Medicine 09/14/20 Andre Cunningham MD [address] [place] [address] Medical Oncologist Medical Oncology 10/05/22 Berta Garcia MD [address] [place] [address] Consulting Physician Gastroenterology 10/05/22 documented as of this encounter
--- OUTSIDE RECORDS SUMMARY | 2024-12-12 19:25 | XMS_ITS | Encounter Summary ---
Author Organization [facility] Address [address] [place] [address] Care Team Providers Care Service Clerk Name Role Phone Arvind Montemayor MD Primary Care Provider Encounter Details Date Type Department Care Team (Late st Contact Info) Description 05/28/2019 Lab Requisition 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 Care DermPath Lab Received: 05/28/2019 02:13 PM Pathologist: Sheryl Mancia MD Specimen: Skin, left chest 0 3:47 PM CDT DERMATOPATHOLOGY LABORATORY Clinical History R/O BCC, biopsy proven. 0 3:47 PM CDT DERMATOPATHOLOGY LABORATORY Gross Description Specimen A: Received is one formalin filled container labeled with the patient's name and designated left chest. The specimen consists of a non-oriented ellipse of skin measuring [id number]. The epidermal surface consists of a centrally located 5x5mm previous biopsy site. The margin is inked green. The 12 o'clock and 6 o'clock tips are submitted in cassette 1. The remainder of the ellipse is serially sectioned and submitted in cassettes 2-3. Jar 0. [facility] Dermatopathology Laboratory performed the technical component only. 0 3:47 PM CDT DERMATOPATHOLOGY LABORATORY Embedded Images 0 3:47 PM CDT DERMATOPATHOLOGY LABORATORY DISCLAIMER An external and internal positive and negative controls are appropriate for the histochemical, immunohistochemical and immunofluorescence stain(s) in this case (if any), except where stated explicitly. The performance characteristics of the stain(s) cited in this report were developed and its performance characteristic determined by the Dermatopathology Laboratory at [facility], directed by Dr. Lona Mancia. These tests need not be, and therefore are not, approved by the [place] Food and Drug Administration. The tests are used for clinical purposes. 0 3:47 PM CDT DERMATOPATHOLOGY LABORATORY at 1547 CDT Pathology/Cytolog y TISSUE SPECIMEN FROM SKIN / Unknown 05/28/2019 05/28/2019 2:13 PM CDT Monik Mallory MD LAB - PATHOLOGY/CYTOLOGY OR DERABLES Final Result DERMATOPATHOLOGY LABORATORY [facility] - Department of Dermatology [address] [facility], [address]th [place] [address], [facility] [phone] documented in this encounter Visit Diagnoses Not on filedocumented in this encounter Care Teams Service Clerk Relationship Specialty Start Date End Date Arvind Montemayor MD [address] [place] [address] PCP - General 12/25/20 documented as of this encounter
--- OUTSIDE RECORDS SUMMARY | 2024-12-12 19:25 | XMS_ITS | Clinical Summary ---
Author Organization [facility] Address [address] [facility] [place] [address] Care Team Providers Care Primary Operator Name Role Phone Arvind Montemayor MD Primary Care Provider [phone] Source Comments [facility],non-owned Affiliates and Associated Physician Practices is amultiple site organization consisting of ambulatory clinics and hospital sitesin [place], [place], [place] and [place]. This disclosure is being madepursuant to the Care Everywhere program and may not contain all information available regarding this patient. 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 Gender Identity Not on file Sexual Orientation Not on file Plan of Treatment Health Maintenance Due Date Last Done Comments BONE DENSITY TESTING 1950 COLOGUARD (AGES 45-75) - COL ON CA SCREENING 1949 COLON MONITORING 1949 COLONOSCOPY - COLON CA SCREENING 1949 CT COLONOGRAPHY - COLON CA SCREENING 1950 Colorectal Cancer Screening 1949 FIT - COLON CA SCREENING 1949 FLEX SIG - COLON CA SCREENING 1949 LIPID TESTING 1950 MAMMOGRAM 1949 HEPATITIS C SCREENING 04/02/1967 DTAP/TDAP/TD VACCINES (1 - Tdap) 1968 PNEUMOCOCCAL VACCINE 50+ (1 of 1 - PCV) 04/07/1999 ZOSTER VACCINE (1 of 2) 04/07/1999 DEPRESSION SCREENING 02/07/2024 MEDICARE AWV CALENDAR YEAR 2024 Respiratory Syncytial Virus (RSV) Vaccine Pt: or over 60 yrs (1 - 1-dose 75+ series) 2024 COVID-19 VACCINE ( - 2023-2 5 season) 2024 INFLUENZA VACCINE (#1) 2024 HEPATITIS B VACCINE Aged Out No longe r eligible based on patient's age to complete this topic HIB VACCINE Aged Out No longer eligi ble based on patient's age to complete this topic HPV VACCINE Aged Out No longer eligi ble based on patient's age to complete this topic MENINGOCOCCAL (Group B) VACC INE SHARED DECISION-MAKING Aged Out No longer eligibl e based on patient's age to complete this topic MENINGOCOCCAL GROUPS A/C/Y/W VACCINE Aged Out No longer eligible b ased on patient's age to complete this topic Insurance [facility] MANAGED MEDICARE ADV [facility] MANAGED MEDICARE ADV Care Teams Primary Operator Relationship Specialty Start Date End Date Arvind Montemayor MD [address] [place] [address] PCP - General 12/25/20
--- OUTSIDE RECORDS SUMMARY | 2024-12-12 19:25 | XMS_ITS | Encounter Summary ---
Author Organization [facility] Address [address] [place] [address] Phone Care Team Providers Care Tailor Men'S Ready To Wear Name Role Phone Arvind Montemayor MD Primary Care Provider [phone] Andre Cunningham MD Unavailable Berta Garcia MD Unavailable [phone] Amanda Hare Unavailable Unavailable Encounter Details Date Type Department Care Team (Latest Contact Info) Description 11/01/2021 Orders Only [facility] Scanning, Provider Social History Tobacco Use Types Packs/Day Years Used Date Smoking Tobacco: Never Smokeless Tobacco: Never Comments Unknown Sex and Gender Information Value Date Recorded Sex Assigned at Not on file Legal Sex Female 7:17 AM SUPPORT ASSISTANT Gender Identity Female 09/15/2022 2:56 PM CDT Sexual Orientation Not on file documented as of this encounter Plan of Treatment Not on file documented as of this encounter Procedures Procedure Name Priority Date/Time Associated Diagnosis Comments SCAN - RADIOLOGY/IMAGING 11/01/2021 documented in this encounter Results * SCAN - RADIOLOGY/IMAGING (11/01/2021) Anatomical Region Laterality Modality Other us Provider Scanning Final Result documented in this encounter Visit Diagnoses Not on filedocumented in this encounter Care Teams Tailor Men'S Ready To Wear Relationship Specialty Start Date End Date Arvind Montemayor MD [address] [address] PCP - General Family Medicine 09/14/20 Andre Cunningham MD [address] [place] [address] Medical Oncologist Medical Oncology 10/05/22 Berta Garcia MD [address] [place], [place] [id number] Consulting Physician Gastroenterology 10/05/22 Amanda Hare RMA Surgical Prehabilitation and Readiness (SPAR) Coordinator 01/09/23 01/09/23 documented as of this encounter
--- OUTSIDE RECORDS SUMMARY | 2024-12-12 19:25 | XMS_ITS | Encounter Summary ---
Author Organization 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 Gender Identity Female 09/15/2022 2:56 PM CDT Sexual Orientation Not on file documented as of this encounter Plan of Treatment Not on file documented as of this encounter Procedures Procedure Name Priority Date/Time Associated Diagnosis Comments SCAN - PATHOLOGY 09/27/2023 12:00 AM CDT documented in this encounter Results * SCAN - PATHOLOGY (09/27/2023 12:00 AM CDT) us Provider Scanning Edited Result - Final documented in this encounter Visit Diagnoses Not on filedocumented in this encounter Care Teams B2B Sales Consultant Relationship Specialty Start Date End Date Arvind Montemayor MD [address] [address] PCP - General Family Medicine 09/14/20 Andre Cunningham MD [address] [place] [address] Medical Oncologist Medical Oncology 10/05/22 Berta Garcia MD [address] [place] [address] Consulting Physician Gastroenterology 10/05/22 documented as of this encounter
== END ==
PROVIDERS: PCP Family Medicine; Visit Provider Family Medicine
DX: M79.671 Pain in right foot (principal); M79.672 Pain in left foot; G89.29 Other chronic pain
CPT/HCPCS: 73630